=== PATIENT | female | born 1945 | race Caucasian/White ===

== ENCOUNTER 2016-08-26 03:25 | Emergency (ER) | payer MEDICARE, BC ==
--- NOTE | 2016-08-26 04:18 | EDM.PDOC ---
[id number] CHEST PAIN AND LEFT ARM PAIN Time Seen by Provider: 08/26/16 04:00 Source of Information: Reports: Patient, Family History Limitations: Reports: No limitations - History of Present Illness INITIAL COMMENTS - FREE TEXT/NARRATIVE: 70-year-old female with no prior cardiac history has been bothered by left arm pain 3 times over the last couple of nights, it lasts about 10 minutes. She has no pain while she is up and active. Tonight she was up with the pain so she asked her to bring her to the emergency room. She had no other symptoms such as shortness of breath, chest pain, nausea vomiting, diaphoresis, and the pain did not seem to be worse with motion. It lasted almost 10 minutes and resolved. She has a history of an ischemic stroke with right-sided weakness and mild expressive aphasia. She had a stress test a few years ago which was negative. Duration: Minutes: (Pain lasts between 5 and 10 minutes) Location: Reports: upper extremity, left Associated Symptoms: Reports: denies other symptoms - Related Data Allergies Allergy/AdvReac Type Severity Reaction Status Date / Time No Known Allergies Allergy Verified 08/26/16 03:45 Home Meds: Home Meds Aspirin [Adult Low Dose Aspirin EC] 81 mg PO DAILY 08/26/16 [History] Baclofen [Baclofen] 10 mg PO ASDIRECTED 08/26/16 [History] Cyanocobalamin (Vitamin B-12) [Vitamin B-12] 1,000 mcg PO DAILY 08/26/16 [ History] Folic Acid [Folic Acid] 1 mg PO DAILY 08/26/16 [History] Losartan/Hydrochlorothiazide [Losartan-HCTZ 100-25 MG] 1 tab PO DAILY 08/26/16 [ History] Simvastatin [Zocor] 20 mg PO BEDTIME 08/26/16 [History] Warfarin Sodium [Warfarin Sodium] 2.5 mg PO ASDIRECTED 08/26/16 [History] Past Medical History Cardiovascular 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: High cholesterol, 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: Neurological 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: CVA Hematologic 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: Folic acid - Infectious Disease History Infectious Disease 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: Chicken pox - Past Surgical History Musculoskeletal Surgical 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: Knee replacement, Other (see below) Other Musculoskeletal Surgeries/Procedures:: Twic and same knee Social & Family History - Tobacco Use Smoking Status *Q: Former Smoker - Caffeine Use Caffeine Use: Reports: Coffee - Recreational Drug Use Recreational Drug Use: No ED ROS GENERAL - Review of Systems Review Of Systems: See Below Constitutional: Denies: fever, chills Respiratory: Denies: Shortness of Breath, Cough Cardiovascular: Denies: Chest pain GI/Abdominal: Denies: Abdominal pain, Nausea, Vomiting : Reports: no symptoms Musculoskeletal: Reports: arm pain Skin: Reports: no symptoms Neurological: Denies: Headache Psychiatric: Reports: No symptoms ED EXAM, GENERAL - Physical Exam Exam: See Below Exam Limited By: No limitations (Some expressive aphasia) General Appearance: alert, no apparent distress Eye Exam: bilateral eye: EOMI Head: atraumatic Respiratory/Chest: no respiratory distress, lungs clear Cardiovascular: regular rate, rhythm, extra beats (Occasional) Neurological: alert, oriented Psychiatric: normal affect, normal mood Skin Exam: Warm, Dry EKG INTERPRETATION Rhythm: NSR Course - Vital Signs Last Recorded V/S: Last Vital Signs Temp 97.6 F 08/26/16 03:40 Pulse 89 08/26/16 05:05 Resp 14 08/26/16 05:05 BP 142/70 H 08/26/16 05:05 Pulse Ox 96 08/26/16 05:05 - Orders/Labs/Meds Orders: Active Orders 24 hr Category Date Time Status EKG Documentation Completion [RC] ASDIRECTED Care 08/26/16 04:14 Active EKG 12 Lead [EK] Routine Ther 08/26/16 04:14 Ordered Labs: Laboratory Tests 08/26/16 08/26/16 Range/Units 04:14 04:14 WBC 7.2 (4.5-11.0) K/uL RBC 3.52 (3.30-5.50) M/uL Hgb 11.4 L (12.0-15.0) g/dL Hct 33.7 L (36.0-48.0) % MCV 96 (80-98) fL MCH 32 H (27-31) pg MCHC 34 (32-36) % Plt Count 241 (150-400) K/uL Neut % (Auto) 61 (36-66) % Lymph % (Auto) 21 L (24-44) % [place] % (Auto) 15 H (2-6) % Eos % (Auto) 3 (2-4) % Baso % (Auto) 0 (0-1) % Sodium 144 (140-148) mmol/L Potassium 3.5 L (3.6-5.2) mmol/L Chloride 105 (100-108) mmol/L Carbon Dioxide 28 (21-32) mmol/L Anion Gap 14.5 H (5.0-14.0) mmol/L BUN 30 H (7-18) mg/dL Creatinine 1.5 H (0.6-1.0) mg/dL Est Cr Clr Drug Dosing 24.71 mL/min Estimated GFR (MDRD) 34 L (>60) Glucose 109 H (74-106) mg/dL Calcium 9.4 (8.5-10.1) mg/dL Troponin I < 0.017 (0.000-0.056) ng/mL - Re-Assessments/Exams Free Text/Narrative Re-Assessment/Exam: 08/26/16 04:18 CBC BMP EKG and troponin were obtained. 08/26/16 05:04 EKG was normal, creatinine is 1.5 and we don't have any previous labs but otherwise they are reassuring, troponin 0. Patient will recheck with her primary provider if symptoms persist or worsen. I explained to her and her that is likely some type of musculoskeletal or nerve pain that is bothering her at night. Departure - Departure Time of Disposition: 05:33 Disposition: Home, Self-Care 01 Condition: good Clinical Impression: Pain in left arm Instructions: Muscle Pain, Adult Referrals: Aidan Ruiz MD [Primary Care Provider] - Forms: ED Department Discharge Care Plan Goals: Continue your regular medications and try Tylenol for arm pain if it recurs. Recheck if worsening or concerns, or return to ER if you develop chest pain or shortness of breath with the arm pain. - My Orders Last 24 Hours: My Active Orders 08/26/16 04:14 EKG Documentation Completion [RC] ASDIRECTED EKG 12 Lead [EK] Routine - Assessment/Plan Last 24 Hours: My Active Orders 08/26/16 04:14 EKG Documentation Completion [RC] ASDIRECTED EKG 12 Lead [EK] Routine
[2016-08-26 05:32] VITALS: BP 142/70
== END 2016-08-26 05:35 | disposition home or self-care (01) ==
LOC: JP.ED 03:25
DX: M79.602 Pain in left arm (principal); I10 Essential (primary) hypertension; E78.00 Pure hypercholesterolemia, unspecified; Z96.659 Presence of unspecified artificial knee joint; Z87.891 Personal history of nicotine dependence; Z79.82 Long term (current) use of aspirin; Z79.01 Long term (current) use of anticoagulants; Z79.899 Other long term (current) drug therapy
CPT/HCPCS: 36415; 80048; 84484; 85025; 93005; 93010; 99283; 99284-25

== ENCOUNTER 2016-12-19 02:31 | Emergency (ER) | payer MEDICARE, BC ==
--- NOTE | 2016-12-19 03:29 | EDM.PDOC ---
ED HPI GENERAL MEDICAL PROBLEM - General Chief Complaint: Neurological Problem Stated Complaint: DIZZY Time Seen by Provider: 12/19/16 02:40 Source of Information: Reports: Patient, Family History Limitations: Reports: Language Barrier (Patient is fairly expressively aphasic due to a stroke) - History of Present Illness INITIAL COMMENTS - FREE TEXT/NARRATIVE: 71-year-old female woke up tonight and felt dizzy, not vertigo but like she was going to fall or faint. She had no headache, diaphoresis, shortness of breath, palpitations, nausea or vomiting, and she actually looks real good. She had a scrape on her anterior lower leg earlier this evening that bled easily and her is concerned about her pro time. He also thought her blood pressure was very labile at home. Onset: Unknown/Unsure Severity: Mild Associated Symptoms: Denies: Chest Pain, Fever/Chills, Headaches, Loss of Appetite, Nausea/Vomiting, Weakness - Related Data Allergies Allergy/AdvReac Type Severity Reaction Status Date / Time No Known Allergies Allergy Verified 08/26/16 03:45 Home Meds: Home Meds Aspirin [Adult Low Dose Aspirin EC] 81 mg PO DAILY 08/26/16 [History] Baclofen [Baclofen] 10 mg PO ASDIRECTED 08/26/16 [History] Cyanocobalamin (Vitamin B-12) [Vitamin B-12] 1,000 mcg PO DAILY 08/26/16 [ History] Folic Acid [Folic Acid] 1 mg PO DAILY 08/26/16 [History] Losartan/Hydrochlorothiazide [Losartan-HCTZ 100-25 MG] 1 tab PO DAILY 08/26/16 [ History] Simvastatin [Zocor] 20 mg PO BEDTIME 08/26/16 [History] Warfarin Sodium [Warfarin Sodium] 2.5 mg PO ASDIRECTED 08/26/16 [History] Past Medical History Cardiovascular 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: High Cholesterol, 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: Neurological 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: CVA Hematologic 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: Folic Acid - Infectious Disease History Infectious Disease 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: Chicken Pox - Past Surgical History Musculoskeletal Surgical 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: Knee Replacement, Other (See Below) Social & Family History - Tobacco Use Smoking Status *Q: Former Smoker - Caffeine Use Caffeine Use: Reports: Coffee - Recreational Drug Use Recreational Drug Use: No ED ROS GENERAL - Review of Systems Review Of Systems: See Below Constitutional: Denies: Fever, Chills, Malaise HEENT: Reports: No Symptoms Respiratory: Denies: Shortness of Breath, Cough Cardiovascular: Reports: Lightheadedness. Denies: Chest Pain, Palpitations GI/Abdominal: Denies: Abdominal Pain, Nausea, Vomiting : Reports: No Symptoms Skin: Reports: Other (Recent abrasion on the right lower leg) Neurological: Reports: Dizziness. Denies: Headache, Syncope Psychiatric: Reports: No Symptoms ED EXAM, GENERAL - Physical Exam Exam: See Below Exam Limited By: No Limitations General Appearance: Alert, No Apparent Distress Eye Exam: Bilateral Eye: EOMI, Other (No nystagmus) Head: Atraumatic Neck: No: Carotid Bruit Respiratory/Chest: No Respiratory Distress, Lungs Clear Cardiovascular: Regular Rate, Rhythm. No: Extra Beats GI/Abdominal: Soft, Non-Tender Neurological: Alert, Oriented Psychiatric: Normal Affect, Normal Mood Skin Exam: Warm, Dry Course - Vital Signs Last Recorded V/S: Last Vital Signs Temp 97.3 F 12/19/16 03:56 Pulse 75 12/19/16 03:56 Resp 15 12/19/16 03:56 BP 121/67 12/19/16 03:56 Pulse Ox 97 12/19/16 03:56 - Orders/Labs/Meds Labs: Laboratory Tests 12/19/16 12/19/16 12/19/16 Range/Units 03:09 03:09 03:09 WBC 6.2 (4.5-11.0) K/uL RBC 3.28 L (3.30-5.50) M/uL Hgb 10.4 L (12.0-15.0) g/dL Hct 32.0 L (36.0-48.0) % MCV 98 (80-98) fL MCH 32 H (27-31) pg MCHC 33 (32-36) % Plt Count 252 (150-400) K/uL Neut % (Auto) 52 (36-66) % Lymph % (Auto) 25 (24-44) % [place] % (Auto) 17 H (2-6) % Eos % (Auto) 5 H (2-4) % Baso % (Auto) 1 (0-1) % PT 31.7 H (9.5-12.0) sec INR 2.84 H (0.80-1.20) Sodium 141 (140-148) mmol/L Potassium 3.3 L (3.6-5.2) mmol/L Chloride 104 (100-108) mmol/L Carbon Dioxide 28 (21-32) mmol/L Anion Gap 12.3 (5.0-14.0) mmol/L BUN 29 H (7-18) mg/dL Creatinine 1.6 H (0.6-1.0) mg/dL Est Cr Clr Drug Dosing 22.83 mL/min Estimated GFR (MDRD) 32 L (>60) Glucose 103 (74-106) mg/dL Calcium 9.5 (8.5-10.1) mg/dL - Re-Assessments/Exams Free Text/Narrative Re-Assessment/Exam: 12/19/16 03:29 Orthostatic blood pressures were obtained and were normal. CBC BMP and pro time were obtained. Patient was observed for over an hour and was very stable and appeared asymptomatic. 12/19/16 03:37 Renal function is slow but not significantly different than previous levels. I encouraged the patient to stay hydrated tomorrow and recheck if symptoms persist for another 24-48 hours. Departure - Departure Time of Disposition: 03:45 Disposition: Home, Self-Care 01 Condition: Good Clinical Impression: Dizziness, History of ischemic cerebrovascular accident with residual deficit - Discharge Information Instructions: Dizziness Referrals: Aidan Ruiz MD [Primary Care Provider] - Forms: ED Department Discharge Care Plan Goals: Continue your current medications, focus on getting plenty of water over the next 1-2 days and return if not improving satisfactorily. Return anytime sooner if worsening or concerns.
[2016-12-19 03:57] VITALS: BP 121/67
== END 2016-12-19 03:58 | disposition home or self-care (01) ==
LOC: JP.ED 02:31
DX: R42 Dizziness and giddiness (principal); I10 Essential (primary) hypertension; E78.00 Pure hypercholesterolemia, unspecified; I69.30 Unspecified sequelae of cerebral infarction; Z96.659 Presence of unspecified artificial knee joint; Z87.891 Personal history of nicotine dependence; Z79.82 Long term (current) use of aspirin; Z79.01 Long term (current) use of anticoagulants; Z79.899 Other long term (current) drug therapy
CPT/HCPCS: 36415; 80048; 85025; 85610; 99284

== ENCOUNTER 2018-10-13 13:08 | Emergency (ER) | payer MEDICARE, BC ==
[2018-10-13 13:46] VITALS: BP 158/82
--- NOTE | 2018-10-13 14:04 | EDM.PDOC ---
ED HPI GENERAL MEDICAL PROBLEM - General Chief Complaint: Respiratory Problem Stated Complaint: BAD COUGH Time Seen by Provider: 10/13/18 13:55 Source of Information: Reports: Patient, Family History Limitations: Reports: No Limitations - History of Present Illness INITIAL COMMENTS - FREE TEXT/NARRATIVE: 72-year-old female with a cough for the last 2-3 days, worsening and now running a fever. No significant pleuritic chest pain, denies nausea or vomiting. History of an ischemic cerebrovascular accident on the left causing right hemiparesis. Onset: Gradual Duration: Day(s): (3 days) Worsens with: Reports: None Associated Symptoms: Reports: Cough, Fever/Chills, Shortness of Breath. Denies : Chest Pain, Headaches - Related Data Allergies Allergy/AdvReac Type Severity Reaction Status Date / Time tomato Allergy Hives Verified 10/13/18 13:47 Home Meds: Home Meds Aspirin [Adult Low Dose Aspirin EC] 81 mg PO DAILY 08/26/16 [History] Baclofen 10 mg PO ASDIRECTED 08/26/16 [History] Cyanocobalamin (Vitamin B-12) [Vitamin B-12] 1,000 mcg PO DAILY 08/26/16 [ History] Folic Acid 1 mg PO DAILY 08/26/16 [History] Losartan/Hydrochlorothiazide [Losartan-HCTZ 100-25 MG] 1 tab PO DAILY 08/26/16 [ History] Simvastatin [Zocor] 20 mg PO BEDTIME 08/26/16 [History] Warfarin Sodium 2.5 mg PO DAILY 08/26/16 [History] Past Medical History HEENT 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: Impaired Vision Cardiovascular 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: High 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, 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 Denies: Sputum Cardiovascular: Denies: Chest Pain GI/Abdominal: Denies: Nausea, Vomiting Neurological: Reports: Other (Right sided neurologic deficits from a previous ischemic CVA) Psychiatric: Reports: No Symptoms ED EXAM, GENERAL - Physical Exam Exam: See Below Exam Limited By: No Limitations General Appearance: Alert, No Apparent Distress Throat/Mouth: Normal Inspection Head: Atraumatic Respiratory/Chest: No Respiratory Distress, Lungs Clear Cardiovascular: Tachycardia Neurological: Alert, Oriented Psychiatric: Normal Affect, Normal Mood Skin Exam: Warm Course - Vital Signs Last Recorded V/S: Last Vital Signs Temp 101.4 F H 10/13/18 13:45 Pulse 137 H 10/13/18 13:45 Resp 22 H 10/13/18 13:45 BP 158/82 H 10/13/18 13:45 Pulse Ox 90 L 10/13/18 13:45 - Orders/Labs/Meds Orders: Active Orders 24 hr Category Date Time Status Chest 2V [CR] Routine Exams 10/13/18 14:01 Taken - Re-Assessments/Exams Free Text/Narrative Re-Assessment/Exam: 10/13/18 14:03 A two-view chest x-ray was obtained. 10/13/18 14:41 Two-view chest x-ray does show a likely right middle lobe pneumonia, there are no previous films to compare. Patient would like to try to be treated at home, so she will be placed on Zithromax and Levaquin. She will return if she is worsening or becomes more short of breath. Departure - Departure Time of Disposition: 15:00 Disposition: Home, Self-Care 01 Condition: Good Clinical Impression: Right middle lobe pneumonia Qualifiers: Pneumonia type: due to unspecified organism Qualified Code(s): J18.1 - Lobar pneumonia, unspecified organism - Discharge Information Instructions: Community-Acquired Pneumonia, Adult, [id number] Referrals: Aidan Ruiz MD [Primary Care Provider] - Forms: ED Department Discharge Care Plan Goals: Takes Zithromax and Levaquin as prescribed. Recheck INR as scheduled next week and return anytime if worsening despite treatment. Increase diet and activity as tolerated. - My Orders Last 24 Hours: My Active Orders 10/13/18 14:01 Chest 2V [CR] Routine - Assessment/Plan Last 24 Hours: My Active Orders 10/13/18 14:01 Chest 2V [CR] Routine
--- NOTE | 2018-10-13 16:04 | CRLCR ---
Indication: Dyspnea Technique: Chest 2 views Comparison: None Findings/Impression: Cardiovascular and mediastinum: Upper limits of normal cardiac size. Lungs and pleural spaces: A right mid lung opacity suggestive of pneumonia. Underlying mass is not excluded. A 2.5 x 1.3 cm ovoid medial right basilar opacity could be related to central vasculature, however followup is indicated to exclude a lesion. Correlate clinically and followup to document resolution. If these do not resolve, correlate with CT. No pleural effusions. A prominent ovoid paraspinal density could represent a large hiatal hernia. Bones and soft tissues: Degenerative changes in the right glenohumeral joint with an osseous deformity. A sclerotic focus in the left humeral head, nonspecific. Dictated by Cruzito Jones MD @ 10/13/2018 4:00:35 PM Dictated by: Cruzito Jones MD @ 10/13/2018 16:03:28 (Electronically Signed)
== END 2018-10-13 15:00 | disposition home or self-care (01) ==
LOC: JP.ED 13:08
DX: J18.1 Lobar pneumonia, unspecified organism (principal); I10 Essential (primary) hypertension; E78.00 Pure hypercholesterolemia, unspecified; Z86.73 Personal history of transient ischemic attack (TIA), and cerebral infarction without residual deficits; Z79.899 Other long term (current) drug therapy; Z79.01 Long term (current) use of anticoagulants; Z79.82 Long term (current) use of aspirin; Z91.018 Allergy to other foods
CPT/HCPCS: 71046; 99283-25

== ENCOUNTER 2018-10-15 15:56 | Emergency (ER) | payer MEDICARE, BC ==
[2018-10-15 16:49] VITALS: BP 171/80
--- NOTE | 2018-10-15 16:59 | EDM.PDOC ---
ED HPI GENERAL MEDICAL PROBLEM - General Chief Complaint: General Stated Complaint: PNEUMONIA NOT IMPROVING Time Seen by Provider: 10/15/18 16:51 Source of Information: Reports: Patient, Family History Limitations: Reports: No Limitations - History of Present Illness INITIAL COMMENTS - FREE TEXT/NARRATIVE: Patient presents along with her who believes that her pneumonia treatment is not working. Patient was seen here 2 days ago and based on history , exam, chest imaging, was prescribed levofloxacin and azithromycin is presumed to be a right lobar pneumonia. At that time she had a fever and felt poorly. Since then she has not had a fever at home and seems more like her usual self however her said today while attempting to assist her with transfer from bed to a chair, she felt weak and unable to assist with the transfer. She has had a previous stroke with left sided arm and leg paresis. They're concerned that the pneumonia is getting worse as a cause of her weakness episode today. Onset: Gradual Location: Reports: Generalized Associated Symptoms: Reports: No Other Symptoms - Related Data Allergies Allergy/AdvReac Type Severity Reaction Status Date / Time tomato Allergy Hives Verified 10/15/18 17:06 Home Meds: Home Meds Aspirin [Adult Low Dose Aspirin EC] 81 mg PO DAILY 08/26/16 [History] Baclofen 10 mg PO ASDIRECTED 08/26/16 [History] Cyanocobalamin (Vitamin B-12) [Vitamin B-12] 1,000 mcg PO DAILY 08/26/16 [ History] Folic Acid 1 mg PO DAILY 08/26/16 [History] Losartan/Hydrochlorothiazide [Losartan-HCTZ 100-25 MG] 1 tab PO DAILY 08/26/16 [ History] Simvastatin [Zocor] 20 mg PO BEDTIME 08/26/16 [History] Warfarin Sodium 2.5 mg PO DAILY 08/26/16 [History] Past Medical History HEENT 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: Impaired Vision Cardiovascular 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: High Cholesterol, Hypertension 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 Denies: Fever, Chills Respiratory: Reports: No Symptoms. Denies: Shortness of Breath, Cough Cardiovascular: Denies: Lightheadedness ED EXAM, GENERAL - Physical Exam Exam: See Below Exam Limited By: No Limitations General Appearance: Alert, No Apparent Distress Respiratory/Chest: No Respiratory Distress, Lungs Clear, Normal Breath Sounds, No Accessory Muscle Use Cardiovascular: Tachycardia Course - Vital Signs Last Recorded V/S: Last Vital Signs Temp 37.2 C 10/15/18 17:07 Pulse 105 H 10/15/18 17:07 Resp 16 10/15/18 17:07 BP 171/80 H 10/15/18 17:07 Pulse Ox 93 L 10/15/18 17:07 - Re-Assessments/Exams Free Text/Narrative Re-Assessment/Exam: 10/15/18 20:09 I reviewed notes and imaging studies from her previous visit. No lab work was done at the time however her x-ray does show right middle lobe infiltrate of some type. Only a single view chest was done and there was discussion of possibly obtaining a CT scan at some point if this infiltrate does not resolve. I discussed with patient and her , mostly with the , that she looks and sounds very good today. The fact that she is on 2 antibiotics for community pneumonia means things should be very adequately covered. He apparently had a grandson who is a college student developed pneumonia and sepsis and ended up again in intensive care unit in [id number]. I told him that I did not anticipate that happening with his based on how she looked today. They wonder about stopping or decreasing the baclofen that she takes for muscle spasms and said they certainly could and see if that improves her stamina. I discussed that anyone, even young people, can be quite deconditioned following any type of illness. In her case, with residual symptoms from a stroke, her reserve would be small. They seem to understand and appreciate the discussion. Departure - Departure Time of Disposition: 17:23 Disposition: Home, Self-Care 01 Condition: Good Clinical Impression: Pneumonia - Discharge Information *PRESCRIPTION DRUG MONITORING PROGRAM REVIEWED*: Not Applicable *COPY OF PRESCRIPTION DRUG MONITORING REPORT IN PATIENT ADAM: Not Applicable Instructions: Community-Acquired Pneumonia, Adult, [id number] Referrals: PCP,None [Primary Care Provider] - Forms: ED Department Discharge Additional Instructions: Continue current medications and cares at home. Return to ER if feeling worse in anyway.
== END 2018-10-15 17:32 | disposition home or self-care (01) ==
LOC: JP.ED 15:56
DX: J18.9 Pneumonia, unspecified organism (principal); E78.00 Pure hypercholesterolemia, unspecified; I10 Essential (primary) hypertension; Z79.899 Other long term (current) drug therapy; Z79.01 Long term (current) use of anticoagulants; Z91.018 Allergy to other foods; Z79.82 Long term (current) use of aspirin
CPT/HCPCS: 99284

== ENCOUNTER 2018-10-21 09:55 | Emergency (ER) | payer MEDICARE, BC ==
[2018-10-21 10:39] VITALS: BP 116/51
--- NOTE | 2018-10-21 11:41 | EDM.PDOC ---
ED HPI GENERAL MEDICAL PROBLEM - General Chief Complaint: General Stated Complaint: RECHECK Time Seen by Provider: 10/21/18 10:40 Source of Information: Reports: Patient, Family History Limitations: Reports: No Limitations - History of Present Illness INITIAL COMMENTS - FREE TEXT/NARRATIVE: 72-year-old female seen 8 days ago, is found with a right lung infiltrate and was treated with Levaquin and Zithromax. She was rechecked 2 days later because of weakness but appeared to be doing well and was encouraged to continue her treatment. She has 1 day of Levaquin left, but she continues to be very weak and her is concerned that there is something else wrong. He called her primary provider and it was recommended she come to the emergency room to get labs and CT scans. She has no cough, no shortness of breath, no fever but does have persistent weakness, having trouble getting out of her chair and also having some increased swelling in her left leg. Onset: Gradual Duration: Day(s): (8-10 days) Associated Symptoms: Reports: Cough (Cough has improved), Weakness. Denies: Chest Pain, Fever/Chills, Shortness of Breath - Related Data Allergies Allergy/AdvReac Type Severity Reaction Status Date / Time lisinopril Allergy Other Verified 10/21/18 11:33 tomato Allergy Hives Verified 10/21/18 10:22 Home Meds: Home Meds Aspirin [Adult Low Dose Aspirin EC] 81 mg PO DAILY 08/26/16 [History] Baclofen 10 mg PO ASDIRECTED 08/26/16 [History] Cyanocobalamin (Vitamin B-12) [Vitamin B-12] 1,000 mcg PO DAILY 08/26/16 [ History] Folic Acid 1 mg PO DAILY 08/26/16 [History] Losartan/Hydrochlorothiazide [Losartan-HCTZ 100-25 MG] 1 tab PO BEDTIME [History] Simvastatin [Zocor] 20 mg PO BEDTIME 08/26/16 [History] Warfarin Sodium 2.5 mg PO DAILY 08/26/16 [History] Past Medical History HEENT 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: Impaired Vision Cardiovascular 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: High Cholesterol, Hypertension [employer] 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: Musculoskeletal 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: None Neurological 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: CVA Endocrine/Metabolic 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: Obesity/BMI 30+ Hematologic 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: Folic Acid - Infectious Disease History Infectious Disease 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: Chicken Pox - Past Surgical History Head Surgeries/Procedures: Reports: None Endocrine Surgical 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: None Musculoskeletal Surgical 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: Knee Replacement, Other (See Below) Social & Family History - Tobacco Use Smoking Status *Q: Former Smoker Used Tobacco, but Quit: Yes Month/Year Tobacco Last Used: 06/25/1998 - Caffeine Use Caffeine Use: Reports: Coffee - Recreational Drug Use Recreational Drug Use: No ED ROS GENERAL - Review of Systems Review Of Systems: See Below Constitutional: Reports: Malaise. Denies: Fever, Chills HEENT: Reports: No Symptoms Respiratory: Reports: Cough. Denies: Shortness of Breath, Sputum Cardiovascular: Denies: Chest Pain GI/Abdominal: Denies: Abdominal Pain, Nausea, Vomiting Skin: Reports: No Symptoms Neurological: Reports: Other (Chronic stable expressive aphasia and right-sided weakness from an ischemic stroke 20 years ago) Psychiatric: Reports: No Symptoms ED EXAM, GENERAL - Physical Exam Exam: See Below Exam Limited By: No Limitations General Appearance: Alert, No Apparent Distress Eye Exam: Bilateral Eye: EOMI Head: Atraumatic Respiratory/Chest: No Respiratory Distress, Lungs Clear Cardiovascular: Regular Rate, Rhythm GI/Abdominal: Non-Tender Extremities: Other (Patient is wearing a brace behind her right foot for chronic weakness, has 1+ pitting edema of the left lower extremity) Psychiatric: Normal Affect, Normal Mood Skin Exam: Warm, Dry Course - Vital Signs Last Recorded V/S: Last Vital Signs Temp 96.8 F 10/21/18 10:36 Pulse 94 10/21/18 10:36 Resp 13 10/21/18 10:36 BP 116/51 L 10/21/18 10:36 Pulse Ox 93 L 10/21/18 10:36 - Orders/Labs/Meds Labs: Laboratory Tests 10/21/18 10/21/18 Range/Units 10:50 10:50 WBC 6.7 (4.5-11.0) K/uL RBC 3.38 (3.30-5.50) M/uL Hgb 10.9 L (12.0-15.0) g/dL Hct 32.8 L (36.0-48.0) % MCV 97 (80-98) fL MCH 32 H (27-31) pg MCHC 33 (32-36) % Plt Count 232 (150-400) K/uL Neut % (Auto) 65 (36-66) % Lymph % (Auto) 13 L (24-44) % [place] % (Auto) 20 H (2-6) % Eos % (Auto) 2 (2-4) % Baso % (Auto) 0 (0-1) % Sodium 135 L (140-148) mmol/L Potassium 3.7 (3.6-5.2) mmol/L Chloride 98 L (100-108) mmol/L Carbon Dioxide 25 (21-32) mmol/L Anion Gap 15.7 H (5.0-14.0) mmol/L BUN 51 H D (7-18) mg/dL Creatinine 3.0 H D (0.6-1.0) mg/dL Est Cr Clr Drug Dosing 12.00 mL/min Estimated GFR (MDRD) 15 L (>60) Glucose 125 H (74-106) mg/dL Calcium 9.7 (8.5-10.1) mg/dL Total Bilirubin 0.7 (0.2-1.0) mg/dL AST 37 (15-37) U/L ALT 27 (12-78) U/L Alkaline Phosphatase 62 (46-116) U/L Total Protein 6.8 (6.4-8.2) g/dL Albumin 3.4 (3.4-5.0) g/dL Globulin 3.4 (2.3-3.5) g/dL Albumin/Globulin Ratio 1.0 L (1.2-2.2) - Re-Assessments/Exams Free Text/Narrative Re-Assessment/Exam: 10/21/18 11:53 CBC, CMP were obtained to check kidney function followed by CT of the head and chest possibly with IV contrast enhancement of the chest. Head CT showed no acute findings, chest CT was very impressive as her pneumonia had almost completely cleared and there was no underlying mass or concerning findings. CBC was reassuring with a normal white count however her kidney function is worsening over the past 2 years and her GFR is only 15. This was discussed with her primary provider, she is going to recheck with him next week. The last dose of Levaquin was not taken. Departure - Departure Time of Disposition: 13:33 Disposition: Home, Self-Care 01 Condition: Fair Clinical Impression: Generalized weakness Renal failure Qualifiers: Renal failure chronicity: unspecified chronicity Qualified Code(s): N19 - Unspecified kidney failure - Discharge Information Instructions: Weakness, [id number] Referrals: PCP,None [Primary Care Provider] - Forms: ED Department Discharge Care Plan Goals: Stop antibiotics and continue your regular medications. Activity as tolerated and call your primary provider next week for an update on your symptoms and to arrange blood test to recheck kidney function. Return sooner if worsening or you develop other concerns.
--- NOTE | 2018-10-21 12:34 | CRLCT ---
INDICATION: Weakness TECHNIQUE: CT head without contrast. COMPARISON: None available FINDINGS: There is mild age related cortical atrophy with mild proportionate ventriculomegaly. There is an old left MCA territory infarct with ex vacuo dilatation of the left lateral ventricle. There is no mass effect or midline shift. There is no loss of schaffer-white differentiation. There is no evidence of an acute intracranial hemorrhage. No acute calvarial fracture is seen. There is a 1.3 cm sclerotic lesion in the superior left parietal calvarium, nonspecific. The visualized paranasal sinuses and mastoid air cells are clear. The visualized orbits are within normal limits. IMPRESSION: No evidence of an acute intracranial hemorrhage, mass effect or loss of schaffer-white differentiation. A chronic left MCA territory infarct. A sclerotic lesion in the superior left parietal bone, nonspecific. If indicated, followup with bone scan. Dictated by Cruzito Jones MD @ 10/21/2018 12:32:46 PM Please note that all CT scans at this facility use dose modulation, iterative reconstruction, and/or weight-based dosing when appropriate to reduce radiation dose to as low as reasonably achievable. Dictated by: Cruzito Jones MD @ 10/21/2018 12:33:01 (Electronically Signed)
--- NOTE | 2018-10-21 12:44 | CRLCT ---
INDICATION: Weakness. Lung infiltrate TECHNIQUE: CT chest without contrast. COMPARISON: A chest x-ray dated 10/13/2018. FINDINGS: Cardiovascular structures: Upper limits of normal cardiac size. Normal aortic caliber. Atherosclerotic changes. Mediastinum and renetta: A borderline superior mediastinal lymph node on image 22, nonspecific. A large hiatal hernia. Lungs: Mild basilar subsegmental atelectasis. The right mid lung infiltrate seen on the prior chest x-ray has resolved. No consolidation. Pleura and pericardium: No pleural effusions. A small pericardial effusion. Chest wall and axilla: A 1.1 cm soft tissue nodule in the left breast on image 65. A small right thyroid low-density lesion on image 11 and an apparent ill-defined low-attenuation area more inferiorly versus artifact. Upper abdomen: Increased attenuation in the visualized portion of the gallbladder may represent sludge. Bones: An irregular sclerotic lesion in the left humeral head suggestive of a chondroid lesion. Degenerative changes in both shoulders, right greater than left. Loose intra-articular bodies in the left subcoracoid recess. IMPRESSION: No evidence of an acute pulmonary process. Interval resolution of the previously seen right mid lung infiltrate. A small pericardial effusion. A large hiatal hernia. A 1 cm left breast soft tissue nodule. Correlate with mammography and sonography. A chondroid lesion in the left humeral head which could represent an enchondroma, however radiographic surveillance is recommended to ensure stability. Right thyroid lesions. Followup with nonemergent sonography. Dictated by Cruzito Jones MD @ 10/21/2018 12:43:32 PM Please note that all CT scans at this facility use dose modulation, iterative reconstruction, and/or weight-based dosing when appropriate to reduce radiation dose to as low as reasonably achievable. Dictated by: Cruzito Jones MD @ 10/21/2018 12:43:46 (Electronically Signed)
== END 2018-10-21 13:33 | disposition home or self-care (01) ==
LOC: JP.ED 09:55
DX: N19 Unspecified kidney failure (principal); R53.1 Weakness; I10 Essential (primary) hypertension; Z86.73 Personal history of transient ischemic attack (TIA), and cerebral infarction without residual deficits; Z87.891 Personal history of nicotine dependence; Z79.82 Long term (current) use of aspirin; Z79.899 Other long term (current) drug therapy; Z88.8 Allergy status to other drugs, medicaments and biological substances; Z91.018 Allergy to other foods
CPT/HCPCS: 36415; 70450; 71250; 80053; 85025; 99285-25

== ENCOUNTER 2021-01-15 06:08 | Observation (INO) | payer MEDICARE, BC ==
[2021-01-15] MEDS ORDERED: HYDROmorphone 0.5 MG/0.5 ML Syringe IM ONE (06:51)
--- NOTE | 2021-01-15 06:52 | EDM.PDOC ---
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 Onset: Gradual, Other (pt fell on sat. ) Duration: Hour(s): Location: Reports: Upper Extremity, Right, Other (pt has had a previous stroke and is not able to use the arm. ) Associated Symptoms: Reports: No Other Symptoms Right Lower Arm Pain Score (Numeric/FACES): 10 - Related Data Allergies Allergy/AdvReac Type Severity Reaction Status Date / Time lisinopril Allergy Other Verified 01/15/21 06:24 tomato Allergy Hives Verified 01/15/21 06:24 Home Meds: Home Meds Aspirin [Adult Low Dose Aspirin EC] 81 mg PO DAILY 08/26/16 [History] Losartan/Hydrochlorothiazide [Losartan-HCTZ 100-25 MG] 1 tab PO BEDTIME 08/26/16 [History] Simvastatin [Zocor] 20 mg PO BEDTIME 08/26/16 [History] Warfarin Sodium 2.5 mg PO DAILY 08/26/16 [History] Multivitamin 1 each PO DAILY 01/15/21 [History] Past Medical History HEENT 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: Impaired Vision Cardiovascular 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: High Cholesterol, Hypertension [employer] 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: Musculoskeletal 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: None Neurological 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: CVA Endocrine/Metabolic 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: Obesity/BMI 30+ Hematologic 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: Folic Acid - Infectious Disease History Infectious Disease 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: Chicken Pox - Past Surgical History Head Surgeries/Procedures: Reports: None Endocrine Surgical 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: None Neurological Surgical 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: None Musculoskeletal Surgical 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: Knee Replacement, Other (See Below) Other Musculoskeletal Surgeries/Procedures:: Twic and same knee Social & Family History - Tobacco Use Tobacco Use Status *Q: Former Tobacco User Used Tobacco, but Quit: Yes Month/Year Tobacco Last Used: 19 years ago - Caffeine Use Caffeine Use: Reports: Coffee - Alcohol Use Days Per Week of Alcohol Use: 7 Number of Drinks Per Day: 3 Total Drinks Per Week: 21 - Recreational Drug Use Recreational Drug Use: No Review of Systems - Review of Systems Review Of Systems: See Below Constitutional: Reports: No Symptoms Eyes: Reports: No Symptoms Ears: Reports: No Symptoms Nose: Reports: No Symptoms Mouth/Throat: Reports: No Symptoms Respiratory: Reports: No Symptoms Cardiovascular: Reports: No Symptoms GI/Abdominal: Reports: No Symptoms Genitourinary: Reports: No Symptoms Musculoskeletal: Reports: Other (marked swelling of the rt arm) ED EXAM, GENERAL - Physical Exam Exam: See Below Free Text/Narrative:: 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 This arm is paralized from a previous stroke. The arm at this time is extremely swollen and discolored. her pain is at a 9. pT IS ON COUMADIN Exam Limited By: No Limitations General Appearance: Alert, Severe Distress Ears: Normal TMs Nose: Normal Inspection Throat/Mouth: Normal Inspection Head: Atraumatic Neck: Normal Inspection Respiratory/Chest: No Respiratory Distress Cardiovascular: Regular Rate, Rhythm GI/Abdominal: Soft, Non-Tender (Female) Exam: Deferred Rectal (Female) Exam: Deferred Back Exam: Normal Inspection Extremities: Other ( RT ARM IS PARALIZED AND SHE NOW IS MARKEDLY SWOLLEN. ) Neurological: Alert, Oriented, Normal Cognition Psychiatric: Anxious Departure - Departure Disposition: Admitted As Inpatient 65 Clinical Impression: Supratherapeutic INR, Blood loss anemia Traumatic hematoma of right upper arm Qualifiers: Encounter type: initial encounter Qualified Code(s): S40.021A - Contusion of right upper arm, initial encounter - Discharge Information Sepsis Event Note (ED) - Evaluation Sepsis Screening Result: No Definite Risk <Donis Lazar - Last Filed: 01/15/21 14:12> Course - Vital Signs Last Recorded V/S: Last Vital Signs Temp 97 F 01/15/21 10:00 Pulse 84 01/15/21 10:00 Resp 16 01/15/21 10:00 BP 151/64 H 01/15/21 10:00 Pulse Ox 94 L 01/15/21 10:00 - Orders/Labs/Meds Orders: Medication Orders Acetaminophen (Acetaminophen 325 Mg Tab) 650 mg PO Q4H PRN PRN Reason: Pain (Mild 1-3)/fever Atorvastatin Calcium (Atorvastatin 10 Mg Tab) 10 mg PO BEDTIME LY Hydrochlorothiazide (Hydrochlorothiazide 25 Mg Tab) 25 mg PO BEDTIME LY Sodium Chloride (Normal Saline) 1,000 mls @ 125 mls/hr IV ASDIRECTED LY Last Admin: 01/15/21 12:00 Dose: 125 mls/hr Documented by: HANNAH Losartan Potassium (Losartan 50 Mg Tab) 100 mg PO BEDTIME LY Ondansetron HCl (Ondansetron 4 Mg/2 Ml Sdv) 4 mg IV Q4H PRN PRN Reason: Nausea/Vomiting Last Admin: 01/15/21 12:30 Dose: 4 mg Documented by: HANNAH Oxycodone HCl (Oxycodone 5 Mg Tab) 5 mg PO Q4H PRN PRN Reason: severe pain Last Admin: 01/15/21 10:47 Dose: 5 mg Documented by: HANNAH Polyethylene Glycol (Polyethylene Glycol 3350 Powder 17 Gm Packet) 17 gm PO DAILY PRN PRN Reason: Constipation Sodium Chloride (Sodium Chloride 0.9% 10 Ml Syringe) 10 ml FLUSH ASDIRECTED PRN PRN Reason: Keep Vein Open Labs: Laboratory Tests 01/15/21 01/15/21 01/15/21 Range/Units 06:48 06:48 06:48 WBC 8.8 (4.5-11.0) K/uL RBC 2.31 L (3.30-5.50) M/uL Hgb 7.6 L D (12.0-15.0) g/dL Hct 22.5 L (36.0-48.0) % MCV 97 (80-98) fL MCH 33 H (27-31) pg MCHC 34 (32-36) % Plt Count 202 (150-400) K/uL Neut % (Auto) 74.0 H (36-66) % Lymph % (Auto) 11.6 L (24-44) % [place] % (Auto) 12.6 H (2-6) % Eos % (Auto) 1.6 L (2-4) % Baso % (Auto) 0.2 (0-1) % PT 66.2 H (9.5-12.0) sec INR 6.30 H* (0.80-1.20) Sodium 139 L (140-148) mmol/L Potassium 3.4 L (3.6-5.2) mmol/L Chloride 100 (100-108) mmol/L Carbon Dioxide 25 (21-32) mmol/L Anion Gap 17.4 H (5.0-14.0) mmol/L BUN 20 H D (7-18) mg/dL Creatinine 1.1 H D (0.6-1.0) mg/dL Est Cr Clr Drug Dosing 31.25 mL/min Estimated GFR (MDRD) 48 L (>60) Glucose 127 H (74-106) mg/dL Calcium 8.4 L (8.5-10.1) mg/dL Total Bilirubin 0.8 (0.2-1.0) mg/dL AST 44 H (15-37) U/L ALT 33 (12-78) U/L Alkaline Phosphatase 115 D (46-116) U/L Total Protein 6.4 (6.4-8.2) g/dL Albumin 3.2 L (3.4-5.0) g/dL Globulin 3.2 (2.3-3.5) g/dL Albumin/Globulin Ratio 1.0 L (1.2-2.2) Meds: Medications Generic Name Dose Route Start Last Admin Trade Name Freq PRN Reason Stop Dose Admin Acetaminophen 650 mg 01/15/21 09:37 Acetaminophen 325 Mg Tab PO Q4H PRN Pain (Mild 1-3)/fever Atorvastatin Calcium 10 mg 01/15/21 21:00 Atorvastatin 10 Mg Tab PO BEDTIME LY Hydrochlorothiazide 25 mg 01/15/21 21:00 Hydrochlorothiazide 25 Mg Tab PO BEDTIME LY Sodium Chloride 1,000 mls @ 125 mls/hr 01/15/21 09:37 01/15/21 12:00 Normal Saline IV 125 mls/hr ASDIRECTED LY Administration Losartan Potassium 100 mg 01/15/21 21:00 Losartan 50 Mg Tab PO BEDTIME LY Ondansetron HCl 4 mg 01/15/21 09:37 01/15/21 12:30 Ondansetron 4 Mg/2 Ml Sdv IV 4 mg Q4H PRN Administration Nausea/Vomiting Oxycodone HCl 5 mg 01/15/21 10:41 01/15/21 10:47 Oxycodone 5 Mg Tab PO 5 mg Q4H PRN Administration severe pain Polyethylene Glycol 17 gm 01/15/21 09:37 Polyethylene Glycol 3350 Powder 17 Gm Packet PO DAILY PRN Constipation Sodium Chloride 10 ml 01/15/21 09:37 Sodium Chloride 0.9% 10 Ml Syringe FLUSH ASDIRECTED PRN Keep Vein Open Discontinued Medications Generic Name Dose Route Start Last Admin Trade Name Mian PRN Reason Stop Dose Admin Hydromorphone HCl 0.5 mg 01/15/21 06:51 01/15/21 07:14 Hydromorphone 0.5 Mg/0.5 Ml Syringe IM 01/15/21 06:52 0.5 mg ONETIME ONE Administration Phytonadione 5 mg/ Sodium 50.5 mls @ 100 mls/hr 01/15/21 11:45 01/15/21 12:10 Chloride IV 01/15/21 12:15 100 mls/hr NOW ONE Administration - Re-Assessments/Exams Free Text/Narrative Re-Assessment/Exam: 01/15/21 08:20 Patient care turned over from Dr. Sherman pending arm x-ray. There does not appear to be a humeral fracture. However her hemoglobin is 7.6 compared to over 11 last November. Her INR is over 7. I think she is at high risk of further blood loss anemia and needs admission for stabilization of her hyper anticoagulation status and follow some serial hemoglobins. She also will likely need pain control. I talked to Dr. Street and he kindly agreed to see the patient to consider admission. Departure - Departure Time of Disposition: 10:06 Sepsis Event Note (ED) - Focused Exam Vital Signs: Vital Signs Temp Pulse Resp BP Pulse Ox 01/15/21 07:55 85 16 132/52 L 95 01/15/21 06:20 98.1 F 96 16 170/72 H 96
--- NOTE | 2021-01-15 08:46 | PCM.HP.2 ---
H&P History of Present Illness - General Date of Service: 01/15/21 Admit Problem/Dx: Admission Diagnosis/Problem Admission Diagnosis/Problem Bleeding Source of Information: Patient, Family, Provider, RN Notes Reviewed History Limitations: Reports: No Limitations - History of Present Illness Initial Comments - Free Text/Narative: Ms. Menchaca is a 75-year-old woman who was admitted through the emergency department for management of pain and hematoma of her right upper extremity following a fall 4 days ago. She is status post CVA with residual right-sided weakness approximately 20 years ago. She fell 4 days ago and since then has developed progressive ecchymosis and swelling of her right upper extremity. She continues to experience significant pain in the upper portion of her upper arm. Because of progressive symptoms she presented to the emergency department [facility] this morning. X-ray shows no evidence of fracture. INR was significantly elevated and she is on long-term oral anticoagulation with warfarin as well as aspirin. Right Lower Arm Pain Score (Numeric/FACES): 5 Right Upper Arm Pain Score (Numeric/FACES): 5 - Related Data Allergies/Adverse Reactions: Allergies Allergy/AdvReac Type Severity Reaction Status Date / Time lisinopril Allergy Other Verified 01/15/21 06:24 tomato Allergy Hives Verified 01/15/21 06:24 Home Medications: Home Meds Aspirin [Adult Low Dose Aspirin EC] 81 mg PO DAILY 08/26/16 [History] Losartan/Hydrochlorothiazide [Losartan-HCTZ 100-25 MG] 1 tab PO BEDTIME 08/26/16 [History] Simvastatin [Zocor] 20 mg PO BEDTIME 08/26/16 [History] Warfarin Sodium 2.5 mg PO DAILY 08/26/16 [History] Multivitamin 1 each PO DAILY 01/15/21 [History] Past Medical History HEENT 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: Impaired Vision Cardiovascular 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: High Cholesterol, Hypertension 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: Musculoskeletal 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: None Neurological 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: CVA Endocrine/Metabolic 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: Obesity/BMI 30+ Hematologic 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: Folic Acid - Infectious Disease History Infectious Disease 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: Chicken Pox - Past Surgical History Head Surgeries/Procedures: Reports: None Endocrine Surgical 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: None Neurological Surgical 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: None Musculoskeletal Surgical 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: Knee Replacement, Other (See Below) Other Musculoskeletal Surgeries/Procedures:: Twic and same knee Social & Family History - Tobacco Use Tobacco Use Status *Q: Former Tobacco User Used Tobacco, but Quit: Yes Month/Year Tobacco Last Used: 19 years ago - Caffeine Use Caffeine Use: Reports: Coffee - Alcohol Use Days Per Week of Alcohol Use: 7 Number of Drinks Per Day: 3 Total Drinks Per Week: 21 - Recreational Drug Use Recreational Drug Use: No H&P Review of Systems - Review of Systems: Review Of Systems: See Below General: Reports: No Symptoms HEENT: Reports: No Symptoms Pulmonary: Reports: No Symptoms Cardiovascular: Reports: No Symptoms Gastrointestinal: Reports: No Symptoms Genitourinary: Reports: No Symptoms Musculoskeletal: Reports: No Symptoms Skin: Reports: Bruising, Other (Ecchymosis and swelling of the right upper extremity) Psychiatric: Reports: No Symptoms Neurological: Reports: No Symptoms Hematologic/Lymphatic: Reports: No Symptoms Immunologic: Reports: No Symptoms Exam - Exam Exam: See Below - Vital Signs Vital Signs: Last Vital Signs Temp 98.1 F 01/15/21 06:20 Pulse 85 01/15/21 07:55 Resp 16 01/15/21 07:55 BP 132/52 L 01/15/21 07:55 Pulse Ox 95 01/15/21 07:55 Weight: 150 lb - Exam General: Alert, Oriented, Cooperative, Moderate Distress HEENT: Conjunctiva Clear, Hearing Intact, Mucosa Moist & [place], Normal Nasal Septum, Posterior Pharynx Clear, Pupils Equal Neck: Supple, Trachea Midline, +2 Carotid Pulse wo Bruit Lungs: Clear to Auscultation, Normal Respiratory Effort Cardiovascular: Regular Rate, Regular Rhythm, Normal S1, Normal S2. No: Systolic Murmur, Diastolic Murmur GI/Abdominal Exam: Soft, Non-Tender, No Organomegaly, No Distention Back Exam: Normal Inspection, Full Range of Motion Extremities: Other (Marked ecchymosis and swelling of the right upper extremity, no evidence of vascular compromise) Skin: Warm, Dry, Intact, Ecchymosis Neurological: Cranial Nerves Intact, Normal Speech, Normal Tone, Sensation Intact. No: Strength Equal Bilateral (Weakness right upper and lower extremity, chronic), Focal Deficit Neuro Extensive - Mental Status: Alert, Oriented x3, Normal Mood/Affect, Normal Cognition, Memory Intact - Patient Data Lab Results Last 24 hrs: Laboratory Results - last 24 hr 01/15/21 01/15/21 01/15/21 Range/Units 06:48 06:48 06:48 WBC 8.8 (4.5-11.0) K/uL RBC 2.31 L (3.30-5.50) M/uL Hgb 7.6 L D (12.0-15.0) g/dL Hct 22.5 L (36.0-48.0) % MCV 97 (80-98) fL MCH 33 H (27-31) pg MCHC 34 (32-36) % Plt Count 202 (150-400) K/uL Neut % (Auto) 74.0 H (36-66) % Lymph % (Auto) 11.6 L (24-44) % [place] % (Auto) 12.6 H (2-6) % Eos % (Auto) 1.6 L (2-4) % Baso % (Auto) 0.2 (0-1) % PT 66.2 H (9.5-12.0) sec INR 6.30 H* (0.80-1.20) Sodium 139 L (140-148) mmol/L Potassium 3.4 L (3.6-5.2) mmol/L Chloride 100 (100-108) mmol/L Carbon Dioxide 25 (21-32) mmol/L Anion Gap 17.4 H (5.0-14.0) mmol/L BUN 20 H D (7-18) mg/dL Creatinine 1.1 H D (0.6-1.0) mg/dL Est Cr Clr Drug Dosing 31.25 mL/min Estimated GFR (MDRD) 48 L (>60) Glucose 127 H (74-106) mg/dL Calcium 8.4 L (8.5-10.1) mg/dL Total Bilirubin 0.8 (0.2-1.0) mg/dL AST 44 H (15-37) U/L ALT 33 (12-78) U/L Alkaline Phosphatase 115 D (46-116) U/L Total Protein 6.4 (6.4-8.2) g/dL Albumin 3.2 L (3.4-5.0) g/dL Globulin 3.2 (2.3-3.5) g/dL Albumin/Globulin Ratio 1.0 L (1.2-2.2) Result Diagrams: 01/15/21 12:55 01/15/21 06:48 Sepsis Event Note - Evaluation Sepsis Screening Result: No Definite Risk - Focused Exam Vital Signs: Vital Signs Temp Pulse Resp BP Pulse Ox 01/15/21 07:55 85 16 132/52 L 95 01/15/21 06:20 98.1 F 96 16 170/72 H 96 *Q Meaningful Use (ADM) - VTE *Q VTE Pharmacological Contraindications *Q: High INR Value - VTE Risk Assess *Q Each Risk Factor Represents 1 Point: Obesity ( BMI > 25 kg/m2) Total Score 1 Point Risk Factors: 1 Each Risk Factor Represents 2 Points: None Total Score 2 Point Risk Factors: 0 Each Risk Factor Represents 3 Points: Age 75 Years or Greater Total Score 3 Point Risk Factors: 3 Each Risk Factor Represents 5 Points: None Total Score 5 Point Risk Factors: 0 Venous Thromboembolism Risk Factor Score *Q: 4 Problem List Initiated/Reviewed/Updated: Yes Orders Last 24hrs: Active Orders 24 hr Category Date Time Status Patient Status Manage Transfer [TRANSFER] Routine ADT 01/15/21 08:38 Ordered Humerus Rt [CR] Stat Exams 01/15/21 06:55 Taken UA W/MICROSCOPIC [URIN] Urgent Lab 01/15/21 06:38 Ordered Resuscitation Status Routine Resus Stat 01/15/21 08:41 Ordered Assessment/Plan Comment:: ASSESSMENT AND PLAN HEMATOMA RIGHT UPPER EXTREMITY-secondary to a fall 4 days ago, complicated by anticoagulation with warfarin and aspirin. She has had increased pain and swelling in the arm over the past 4 days. INR obtained in the emergency room is supratherapeutic, likely contributing to ongoing bleeding. X-rays have shown no evidence of fracture. 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 -Keep the arm elevated -Reverse anticoagulation with vitamin K 5 mg IV -Hold warfarin and aspirin -Recheck INR in a.m. CHRONIC ANTICOAGULATION WITH WARFARIN-she reports that she has been on warfarin since her CVA approximately 20 years ago -Management as above HYPERTENSION -Continue outpatient medications HISTORY OF PREVIOUS CVA-residual right-sided weakness MAINTENANCE ISSUES -DVT prophylaxis; SCUDs, hold on anticoagulation secondary to bleeding -GI prophylaxis; not indicated -Méndez catheter; not indicated -Nutrition; regular diet -Nicotinic dependence; not required CODE STATUS-FULL CODE ADMISSION STATUS-this patient will be admitted to observation status, expect no more than a one night hospital stay for evaluation and management of problems as outlined above. DISPOSITION-anticipate discharge to home after the hospital stay. PRIMARY CARE PROVIDER-Dr. Ruiz - Mortality Measure Prognosis:: Good
--- NOTE | 2021-01-15 09:08 | CR ---
Humerus Rt CLINICAL HISTORY: Pain, fall FINDINGS: There is deformity of the humeral head. There is moderate periarticular ossification. Configuration is somewhat similar to a chest x-ray in 2019. No definite acute fractures identified. There is moderate soft tissue edema and/or ecchymosis IMPRESSION: Chronic deformity the humeral head without definite acute fracture. If clinical symptomatology persists or worsens a repeat exam is recommended.
[2021-01-15] MEDS ORDERED: Ondansetron 4 MG/2 ML SDV IV PRN (09:37)
[2021-01-15] MEDS ORDERED: Acetaminophen 325 MG Tab PO PRN (09:37)
[2021-01-15] MEDS ORDERED: Polyethylene Glycol 3350 Powder 17 GM Packet PO PRN (09:37)
[2021-01-15] MEDS ORDERED: Sodium Chloride 0.9% 10 ML Syringe FLUSH PRN (09:37)
[2021-01-15] MEDS: oxyCODONE 5 MG Tab PO PRN ×3 (10:47→23:27)
[2021-01-15] MEDS ORDERED: Phytonadione 5 MG in Sodium Chloride 0.9% 50 ML IV ONE (11:45)
[2021-01-15] MEDS: Sodium Chloride 0.9% 1,000 ML IV SCH ×2 (12:00→20:55)
--- NOTE | 2021-01-15 13:13 | CT ---
Humerus wo Cont Rt CLINICAL HISTORY: Fall, swelling and ecchymosis TECHNIQUE: Thin section axial tomography images are obtained from just above the shoulder downward through the elbow joint without IV contrast. Coronal and sagittal images were reconstructed. Auto dosage reduction and iterative reconstruction techniques employed. FINDINGS: There is significant deformity of the humeral head due to osteoarthritis and periarticular spurring. Is also periarticular spurring at the glenoid. There is atrophy of the supraspinatus muscle and apparent retraction of the supraspinatus tendon. There is no significant joint effusion. No fracture is identified. There is increased density and heterogeneity as well as swelling of the medial head of the triceps muscle which suggests an internal hemorrhage and hematoma. This appears to be somewhat contained within the fascia IMPRESSION: Severe degenerative change in the shoulder No humeral fracture seen Swelling of the medial head of the triceps muscle suggest internal hemorrhage and large hematoma within the fascia
[2021-01-15] MEDS: Losartan 50 MG Tab PO SCH (20:57)
[2021-01-15] MEDS: atorvaSTATin 10 MG Tab PO SCH (20:58)
[2021-01-15] MEDS: Hydrochlorothiazide 25 MG Tab PO SCH (20:58)
--- NOTE | 2021-01-15 22:45 | PCM.SN.2 ---
- Free Text/Narrative Note: call from [address] [place] [address] at 2100 O: pulse 97 blood pressure 136/78 serial hemoglobin 7.6, 7.3, now 6.5 A: Hypovolemia - hemoglobin 6.5 P: order 2 units of PRBC give 1 unit now recheck hemoglobin 2 hours after first unit is completed, if hemoglobin less than 7.0, will need to give additional unit of blood
[2021-01-16] MEDS: Sodium Chloride 0.9% 1,000 ML IV SCH (06:43)
[2021-01-16] MEDS ORDERED: Potassium Chloride 20 MEQ Tab.ER PO ONE (12:30)
[2021-01-16] MEDS: Losartan 50 MG Tab PO SCH (20:11)
[2021-01-16] MEDS: atorvaSTATin 10 MG Tab PO SCH (20:12)
[2021-01-16] MEDS: Hydrochlorothiazide 25 MG Tab PO SCH (20:12)
--- NOTE | 2021-01-16 21:33 | PCM.PN ---
- General Info Date of Service: 01/16/21 Admission Dx/Problem (Free Text): Admission Diagnosis/Problem Admission Diagnosis/Problem right arm hematoma with secondary significant anemia Subjective Update: Ms. Menchaca required a blood transfusion this morning. She is no longer having pain in the arm that is severe, she does have some pain in the arm. She was feeling significantly better and was wanting to go home around lunchtime however by this afternoon she had an episode of lightheadedness and almost fell. Because of this her and her decided that she should stay overnight. Functional Status: Reports: Pain Controlled, Tolerating Diet - Review of Systems General: Reports: No Symptoms, Fever, Appetite HEENT: Reports: No Symptoms Pulmonary: Reports: No Symptoms Cardiovascular: Reports: No Symptoms Gastrointestinal: Reports: No Symptoms Genitourinary: Reports: No Symptoms Musculoskeletal: Reports: Arm Pain Skin: Reports: Bruising Neurological: Reports: Dizziness Psychiatric: Reports: No Symptoms - Patient Data Vitals - Most Recent: Last Vital Signs Temp 98.6 F 01/16/21 20:05 Pulse 99 01/16/21 20:05 Resp 18 01/16/21 20:05 BP 129/73 01/16/21 20:11 Pulse Ox 93 L 01/16/21 20:05 Weight - Most Recent: 150 lb 0.005 oz I&O - Last 24 Hours: Intake & Output 01/16/21 01/16/21 01/16/21 06:59 14:59 22:59 Intake Total 376 Output Total 100 1000 300 Balance 276 -1000 -300 Lab Results Last 24 Hours: Laboratory Results - last 24 hr 01/15/21 01/16/21 01/16/21 Range/Units 12:55 05:20 05:20 WBC 6.8 (4.5-11.0) K/uL RBC 2.50 L (3.30-5.50) M/uL Hgb 8.1 L (12.0-15.0) g/dL Hct 23.8 L (36.0-48.0) % MCV 95 (80-98) fL MCH 32 H (27-31) pg MCHC 34 (32-36) % Plt Count 184 (150-400) K/uL Neut % (Auto) 62.7 (36-66) % Lymph % (Auto) 21.0 L (24-44) % [place] % (Auto) 15.6 H (2-6) % Eos % (Auto) 0.6 L (2-4) % Baso % (Auto) 0.1 (0-1) % PT 14.3 H (9.5-12.0) sec INR 1.32 H D (0.80-1.20) Sodium (140-148) mmol/L Potassium (3.6-5.2) mmol/L Chloride (100-108) mmol/L Carbon Dioxide (21-32) mmol/L Anion Gap (5.0-14.0) mmol/L BUN (7-18) mg/dL Creatinine (0.6-1.0) mg/dL Est Cr Clr Drug Dosing mL/min Estimated GFR (MDRD) (>60) Glucose (74-106) mg/dL Calcium (8.5-10.1) mg/dL Blood Type A POSITIVE Gel Antibody Screen Negative Crossmatch See Detail 01/16/21 01/16/21 Range/Units 05:20 14:55 WBC (4.5-11.0) K/uL RBC (3.30-5.50) M/uL Hgb 8.7 L (12.0-15.0) g/dL Hct (36.0-48.0) % MCV (80-98) fL MCH (27-31) pg MCHC (32-36) % Plt Count (150-400) K/uL Neut % (Auto) (36-66) % Lymph % (Auto) (24-44) % [place] % (Auto) (2-6) % Eos % (Auto) (2-4) % Baso % (Auto) (0-1) % PT (9.5-12.0) sec INR (0.80-1.20) Sodium 138 L (140-148) mmol/L Potassium 3.4 L (3.6-5.2) mmol/L Chloride 103 (100-108) mmol/L Carbon Dioxide 25 (21-32) mmol/L Anion Gap 13.4 (5.0-14.0) mmol/L BUN 24 H (7-18) mg/dL Creatinine 1.0 (0.6-1.0) mg/dL Est Cr Clr Drug Dosing 34.38 mL/min Estimated GFR (MDRD) 54 L (>60) Glucose 106 (74-106) mg/dL Calcium 7.5 L (8.5-10.1) mg/dL Blood Type Gel Antibody Screen Crossmatch Med Orders - Current: Current Medications Acetaminophen (Acetaminophen 325 Mg Tab) 650 mg PO Q4H PRN PRN Reason: Pain (Mild 1-3)/fever Last Admin: 01/15/21 21:01 Dose: 650 mg Documented by: Atorvastatin Calcium (Atorvastatin 10 Mg Tab) 10 mg PO BEDTIME [facility] Last Admin: 01/16/21 20:12 Dose: 10 mg Documented by: Hydrochlorothiazide (Hydrochlorothiazide 25 Mg Tab) 25 mg PO BEDTIME [facility] Last Admin: 01/16/21 20:12 Dose: 25 mg Documented by: Losartan Potassium (Losartan 50 Mg Tab) 100 mg PO BEDTIME [facility] Last Admin: 01/16/21 20:11 Dose: 100 mg Documented by: Ondansetron HCl (Ondansetron 4 Mg/2 Ml Sdv) 4 mg IV Q4H PRN PRN Reason: Nausea/Vomiting Last Admin: 01/15/21 12:30 Dose: 4 mg Documented by: Oxycodone HCl (Oxycodone 5 Mg Tab) 5 mg PO Q4H PRN PRN Reason: severe pain Last Admin: 01/15/21 23:27 Dose: 5 mg Documented by: Polyethylene Glycol (Polyethylene Glycol 3350 Powder 17 Gm Packet) 17 gm PO DAILY PRN PRN Reason: Constipation Sodium Chloride (Sodium Chloride 0.9% 10 Ml Syringe) 10 ml FLUSH ASDIRECTED PRN PRN Reason: Keep Vein Open Discontinued Medications Hydromorphone HCl (Hydromorphone 0.5 Mg/0.5 Ml Syringe) 0.5 mg IM ONETIME ONE Stop: 01/15/21 06:52 Last Admin: 01/15/21 07:14 Dose: 0.5 mg Documented by: Sodium Chloride (Normal Saline) 1,000 mls @ 125 mls/hr IV ASDIRECTED [facility] Last Admin: 01/16/21 06:43 Dose: 125 mls/hr Documented by: Phytonadione 5 mg/ Sodium (Chloride) 50.5 mls @ 100 mls/hr IV NOW ONE Stop: 01/15/21 12:15 Last Admin: 01/15/21 12:10 Dose: 100 mls/hr Documented by: Potassium Chloride (Potassium Chloride 20 Meq Tab.Er) 20 meq PO ONETIME ONE Stop: 01/16/21 12:31 Last Admin: 01/16/21 13:21 Dose: 20 meq Documented by: - Exam General: Alert, Oriented, Cooperative, No Acute Distress HEENT: Pupils Equal, EOMI, Mucous Membr. Moist/[place] Neck: Supple, Trachea Midline Lungs: Clear to Auscultation, Normal Respiratory Effort Cardiovascular: Regular Rate, Regular Rhythm GI/Abdominal Exam: Normal Bowel Sounds, Soft, Non-Tender, No Distention Extremities: Arm Pain, Other (Significant bruising and hematomas along the right arm, partial paresis of the right arm and hand and right leg) Skin: Warm, Dry, Intact, Ecchymosis Neurological: No New Focal Deficit, Cranial Nerves Intact Psy/Mental Status: Alert, Normal Affect, Normal Mood - Patient Data Lab Results Last 24 hrs: Laboratory Results - last 24 hr 01/15/21 01/16/21 01/16/21 Range/Units 12:55 05:20 05:20 WBC 6.8 (4.5-11.0) K/uL RBC 2.50 L (3.30-5.50) M/uL Hgb 8.1 L (12.0-15.0) g/dL Hct 23.8 L (36.0-48.0) % MCV 95 (80-98) fL MCH 32 H (27-31) pg MCHC 34 (32-36) % Plt Count 184 (150-400) K/uL Neut % (Auto) 62.7 (36-66) % Lymph % (Auto) 21.0 L (24-44) % [place] % (Auto) 15.6 H (2-6) % Eos % (Auto) 0.6 L (2-4) % Baso % (Auto) 0.1 (0-1) % PT 14.3 H (9.5-12.0) sec INR 1.32 H D (0.80-1.20) Sodium (140-148) mmol/L Potassium (3.6-5.2) mmol/L Chloride (100-108) mmol/L Carbon Dioxide (21-32) mmol/L Anion Gap (5.0-14.0) mmol/L BUN (7-18) mg/dL Creatinine (0.6-1.0) mg/dL Est Cr Clr Drug Dosing mL/min Estimated GFR (MDRD) (>60) Glucose (74-106) mg/dL Calcium (8.5-10.1) mg/dL Blood Type A POSITIVE Gel Antibody Screen Negative Crossmatch See Detail 01/16/21 01/16/21 Range/Units 05:20 14:55 WBC (4.5-11.0) K/uL RBC (3.30-5.50) M/uL Hgb 8.7 L (12.0-15.0) g/dL Hct (36.0-48.0) % MCV (80-98) fL MCH (27-31) pg MCHC (32-36) % Plt Count (150-400) K/uL Neut % (Auto) (36-66) % Lymph % (Auto) (24-44) % [place] % (Auto) (2-6) % Eos % (Auto) (2-4) % Baso % (Auto) (0-1) % PT (9.5-12.0) sec INR (0.80-1.20) Sodium 138 L (140-148) mmol/L Potassium 3.4 L (3.6-5.2) mmol/L Chloride 103 (100-108) mmol/L Carbon Dioxide 25 (21-32) mmol/L Anion Gap 13.4 (5.0-14.0) mmol/L BUN 24 H (7-18) mg/dL Creatinine 1.0 (0.6-1.0) mg/dL Est Cr Clr Drug Dosing 34.38 mL/min Estimated GFR (MDRD) 54 L (>60) Glucose 106 (74-106) mg/dL Calcium 7.5 L (8.5-10.1) mg/dL Blood Type Gel Antibody Screen Crossmatch Result Diagrams: 01/16/21 14:55 01/16/21 05:20 Sepsis Event Note - Evaluation Sepsis Screening Result: No Definite Risk - Focused Exam Vital Signs: Vital Signs Temp Pulse Resp BP BP BP Pulse Ox 01/16/21 20:11 129/73 01/16/21 20:05 98.6 F 99 18 126/52 L 93 L 01/16/21 14:38 97.7 F 78 16 122/43 L 92 L 01/16/21 11:07 97.8 F 89 16 99/36 L 97 - Problem List & Annotations (1) Blood loss anemia SNOMED Code(s): 060138783 Code(s): D50.0 - IRON DEFICIENCY ANEMIA SECONDARY TO BLOOD LOSS (CHRONIC) Status: Acute Current Visit: Yes (2) Supratherapeutic INR SNOMED Code(s): 927658716 Code(s): R79.1 - ABNORMAL COAGULATION PROFILE Status: Acute Current Vis it: Yes (3) Traumatic hematoma of right upper arm SNOMED Code(s): 05008987 Code(s): S40.021A - CONTUSION OF RIGHT UPPER ARM, INITIAL ENCOUNTER Status: Acute Current Visit: Yes Qualifiers: Encounter type: initial encounter Qualified Code(s): S40.021A - Contusion of right upper arm, initial encounter - Problem List Review Problem List Initiated/Reviewed/Updated: Yes - Plan Plan:: ASSESSMENT AND PLAN HEMATOMA RIGHT UPPER EXTREMITY-secondary to a fall, complicated by anticoagulation with warfarin and aspirin. INR obtained in the emergency room is supratherapeutic, likely contributing to ongoing bleeding. X-rays have shown no evidence of fracture. 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 -Keep the arm elevated -Reverse anticoagulation with vitamin K 5 mg IV-decreased INR into a manageable range of 1.2 -Hold warfarin and aspirin -Will not continue warfarin upon discharge, will give baby aspirin daily-will need follow-up and the clinic was asked why she was on anticoagulation and they were asked to address this when she comes for her follow-up appointment on Wednesday CHRONIC ANTICOAGULATION WITH WARFARIN-she reports that she has been on warfarin since her CVA approximately 20 years ago -Management as above HYPERTENSION -Continue outpatient medications HISTORY OF PREVIOUS CVA-residual right-sided weakness MAINTENANCE ISSUES -DVT prophylaxis; SCUDs, hold on anticoagulation secondary to bleeding -GI prophylaxis; not indicated -Méndez catheter; not indicated -Nutrition; regular diet -Nicotinic dependence; not required CODE STATUS-FULL CODE Plan: Will discharge tomorrow as long as she continues to not have symptoms. Will have follow-up with her primary to discuss future use of anticoagulation. Will be sent home on a baby aspirin without warfarin. DISPOSITION-anticipate discharge to home after the hospital stay. PRIMARY CARE PROVIDER-Dr. Sara Hastings, DO
[2021-01-17 11:42] VITALS: BP 101/56; PULSE 98
--- NOTE | 2021-01-20 09:18 | PCM.DCSUM1 ---
Discharge Summary - Hospital Course Free Text/Narrative:: Ms. Menchaca is a 75-year-old female who was admitted for pain management and hematoma of the right upper extremity following an injury 4 days prior to admission. She had fallen and had increasing ecchymosis and swelling in the right upper extremity. She was on warfarin with a supratherapeutic INR. She was given vitamin K and the warfarin was held. She had been on warfarin for a stroke she had had 20 years prior with no additional episodes, therefore she was not restarted on her warfarin before discharge. Her clinic was notified via phone that we would not be continuing her warfarin and further evaluation for continuation of this medication would need to be made through them. Patient was notified of this and agreed with the plan. During her stay she did require blood transfusion of 2 units. Diagnosis: Stroke: No Modified Jerrell Scale: No Signif.Disability Despite Sympt.Able to Carry Out Usual Act./Duties Modified Dewey Scale Score: 1 - Discharge Data Discharge Date: 01/17/21 Discharge Disposition: Home, Self-Care 01 Condition: Stable - Referral to Home Health Primary Care Physician: Aidan Ruiz MD - Discharge Diagnosis/Problem(s) (1) Supratherapeutic INR SNOMED Code(s): 971527038 ICD Code: R79.1 - ABNORMAL COAGULATION PROFILE Status: Acute (2) Traumatic hematoma of right upper arm SNOMED Code(s): 16479457 ICD Code: S40.021A - CONTUSION OF RIGHT UPPER ARM, INITIAL ENCOUNTER Status: Acute Qualifiers: Encounter type: initial encounter Qualified Code(s): S40.021A - Contusion of right upper arm, initial encounter (3) Acute blood loss anemia SNOMED Code(s): 173141227 ICD Code: D62 - ACUTE POSTHEMORRHAGIC ANEMIA Status: Acute - Patient Summary/Data Consults: Consultations 01/15/21 16:23 PT Evaluation and Treatment [CONS] Routine Please Evaluate and Treat. PT Reason for Consult: Balance This query below is only for informational purposes and is not editable. Admission Diagnosis/Problem: Bleeding - Discharge Plan Home Medications: Home Meds Aspirin [Adult Low Dose Aspirin EC] 81 mg PO DAILY 08/26/16 [History] Losartan/Hydrochlorothiazide [Losartan-HCTZ 100-25 MG] 1 tab PO BEDTIME 08/26/16 [History] Simvastatin [Zocor] 20 mg PO BEDTIME 08/26/16 [History] A,C,E/Zinc/Sod Yen/Jagdish/Lutein [Eye Multivitamin-Lutein Tablet] 1 each PO DAILY 01/15/21 [History] Multivitamin 1 each PO DAILY 01/15/21 [History] Acetaminophen [Tylenol] 650 mg PO Q4H PRN tablet 01/17/21 [Rx] Patient Handouts: Preventing Problems After Surgery, Hematoma, Gknq-ql-Lcoh, How to Prevent Constipation After Surgery Forms: ED Department Discharge Referrals: Wendy Peng, PT [Physical Therapist] - 01/28/21 10:30 am (Please arrive 15 minutes early to register for your appointment. Use the ER entrance and PT registration is located in the basement of the hospital.) - Discharge Summary/Plan Comment DC Time >30 min.: Yes Total # of Minutes for Discharge Time: 60 - General Info Date of Service: 01/17/21 Admission Dx/Problem (Free Text: Admission Diagnosis/Problem Admission Diagnosis/Problem right arm hematoma with secondary blood loss anemia requiring transfusion Subjective Update: On the day of discharge Ms. Menchaca no longer required transfusion and her hemoglobin had stabilized. She was feeling well and ready to go home. She had no complaints other than bruising and tolerable pain in the right arm. Functional Status: Reports: Pain Controlled, Tolerating Diet. Denies: New Symptoms - Review of Systems General: Reports: No Symptoms HEENT: Reports: No Symptoms Pulmonary: Reports: No Symptoms Cardiovascular: Reports: No Symptoms Gastrointestinal: Reports: No Symptoms Genitourinary: Reports: No Symptoms Musculoskeletal: Reports: Arm Pain, Other (Swelling of the right arm) Skin: Reports: Bruising Neurological: Reports: No Symptoms Psychiatric: Reports: No Symptoms - Patient Data Vitals - Most Recent: Last Vital Signs Temp 96.6 F L 01/17/21 11:00 Pulse 98 01/17/21 11:00 Resp 18 01/17/21 11:00 BP 101/56 L 01/17/21 11:00 Pulse Ox 96 01/17/21 11:00 Weight - Most Recent: 150 lb 0.005 oz Med Orders - Current: Current Medications Discontinued Medications Acetaminophen (Acetaminophen 325 Mg Tab) 650 mg PO Q4H PRN PRN Reason: Pain (Mild 1-3)/fever Last Admin: 01/15/21 21:01 Dose: 650 mg Documented by: Atorvastatin Calcium (Atorvastatin 10 Mg Tab) 10 mg PO BEDTIME [facility] Last Admin: 01/16/21 20:12 Dose: 10 mg Documented by: Hydrochlorothiazide (Hydrochlorothiazide 25 Mg Tab) 25 mg PO BEDTIME [facility] Last Admin: 01/16/21 20:12 Dose: 25 mg Documented by: Hydromorphone HCl (Hydromorphone 0.5 Mg/0.5 Ml Syringe) 0.5 mg IM ONETIME ONE Stop: 01/15/21 06:52 Last Admin: 01/15/21 07:14 Dose: 0.5 mg Documented by: Sodium Chloride (Normal Saline) 1,000 mls @ 125 mls/hr IV ASDIRECTED [facility] Last Admin: 01/16/21 06:43 Dose: 125 mls/hr Documented by: Phytonadione 5 mg/ Sodium (Chloride) 50.5 mls @ 100 mls/hr IV NOW ONE Stop: 01/15/21 12:15 Last Admin: 01/15/21 12:10 Dose: 100 mls/hr Documented by: Losartan Potassium (Losartan 50 Mg Tab) 100 mg PO BEDTIME [facility] Last Admin: 01/16/21 20:11 Dose: 100 mg Documented by: Ondansetron HCl (Ondansetron 4 Mg/2 Ml Sdv) 4 mg IV Q4H PRN PRN Reason: Nausea/Vomiting Last Admin: 01/15/21 12:30 Dose: 4 mg Documented by: Oxycodone HCl (Oxycodone 5 Mg Tab) 5 mg PO Q4H PRN PRN Reason: severe pain Last Admin: 01/15/21 23:27 Dose: 5 mg Documented by: Polyethylene Glycol (Polyethylene Glycol 3350 Powder 17 Gm Packet) 17 gm PO DAILY PRN PRN Reason: Constipation Potassium Chloride (Potassium Chloride 20 Meq Tab.Er) 20 meq PO ONETIME ONE Stop: 01/16/21 12:31 Last Admin: 01/16/21 13:21 Dose: 20 meq Documented by: Sodium Chloride (Sodium Chloride 0.9% 10 Ml Syringe) 10 ml FLUSH ASDIRECTED PRN PRN Reason: Keep Vein Open - Exam General: Reports: Alert, Oriented, Cooperative, No Acute Distress HEENT: Reports: Pupils Equal, EOMI, Mucous Membr. Moist/[place] Neck: Reports: Supple, Trachea Midline Lungs: Reports: Clear to Auscultation, Normal Respiratory Effort Cardiovascular: Reports: Regular Rate, Regular Rhythm GI/Abdominal Exam: Normal Bowel Sounds, Soft, Non-Tender, No Distention Extremities: No Pedal Edema, Arm Pain, Other (Significant swelling in the right arm) Skin: Reports: Warm, Dry, Intact, Ecchymosis Neurological: Reports: No New Focal Deficit Psy/Mental Status: Reports: Alert, Normal Affect, Normal Mood *Q Meaningful Use (DIS) - VTE *Q VTE Pharmacological Contraindications *Q: High INR Value
== END 2021-01-17 13:20 | disposition home or self-care (01) ==
LOC: JP.ED 06:08 → JP.MS 08:38
PROVIDERS: ADMIT Hospitalist; ATTEND Hospitalist
DX: S40.021A Contusion of right upper arm, initial encounter (principal); R79.1 Abnormal coagulation profile; E78.00 Pure hypercholesterolemia, unspecified; D62 Acute posthemorrhagic anemia; I10 Essential (primary) hypertension; E66.9 Obesity, unspecified; Z87.891 Personal history of nicotine dependence; Z79.82 Long term (current) use of aspirin; Z79.01 Long term (current) use of anticoagulants; Z88.8 Allergy status to other drugs, medicaments and biological substances; Z88.0 Allergy status to penicillin; W19.XXXA Unspecified fall, initial encounter; Z68.29 Body mass index [BMI] 29.0-29.9, adult
CPT/HCPCS: 36415; 36430; 73060; 73200; 80048; 80053; 85018; 85025; 85027; 85610; 86850; 86900; 86901; 86920; 86922; 96372; 97110; 97116; 97162; 97535; 99284; A9270; J1170; J2405; J3430; J7030; P9016; 96365; 97530-GP; G0378

== ENCOUNTER 2022-05-18 14:10 | Emergency (ER) | payer MEDICARE, BC ==
[2022-05-18 14:34] VITALS: BP 147/77; PULSE 93
[2022-05-18] MEDS ORDERED: Enoxaparin 60 MG/0.6 ML Syringe SUBCUT ONE (16:22)
[2022-05-18] MEDS ORDERED: Enoxaparin 80 MG/0.8 ML Syringe SUBCUT ONE (16:45)
== END 2022-05-18 17:03 | disposition home or self-care (01) ==
LOC: JP.ED 14:10
DX: I82.411 Acute embolism and thrombosis of right femoral vein (principal); I10 Essential (primary) hypertension; E66.9 Obesity, unspecified; Z68.28 Body mass index [BMI] 28.0-28.9, adult; Z88.8 Allergy status to other drugs, medicaments and biological substances; Z91.018 Allergy to other foods; Z79.899 Other long term (current) drug therapy; Z79.82 Long term (current) use of aspirin; Z87.891 Personal history of nicotine dependence; Z74.09 Other reduced mobility; Z86.73 Personal history of transient ischemic attack (TIA), and cerebral infarction without residual deficits; W05.0XXA Fall from non-moving wheelchair, initial encounter
CPT/HCPCS: 93971; 96372; 99284; J1650

== ENCOUNTER 2022-05-25 12:40 | Emergency (ER) | payer MEDICARE, BC ==
[2022-05-25 13:15] VITALS: BP 178/79; PULSE 92
== END 2022-05-25 15:14 | disposition home or self-care (01) ==
LOC: JP.ED 12:40
DX: I80.01 Phlebitis and thrombophlebitis of superficial vessels of right lower extremity (principal); I10 Essential (primary) hypertension; E66.9 Obesity, unspecified; Z68.28 Body mass index [BMI] 28.0-28.9, adult; Z88.1 Allergy status to other antibiotic agents; Z91.018 Allergy to other foods; Z79.82 Long term (current) use of aspirin; Z79.899 Other long term (current) drug therapy; Z87.891 Personal history of nicotine dependence
CPT/HCPCS: 99283

== ENCOUNTER 2022-10-08 06:52 | Day surgery (SDC) | payer MEDICARE, BC ==
[~2022-10-08 06:52] MED LIST: Dextrose 5%-Lactated Ringers 1,000 ML IV SCH
[2022-10-08] MEDS ORDERED: Propofol 200 MG/20 ML SDV ONE (07:09)
[2022-10-08] MEDS ORDERED: fentaNYL 50 MCG/ML SDV ONE (07:09)
[2022-10-08] MEDS ORDERED: Dextrose 5%-Lactated Ringers 1,000 ML IV SCH ×2 (07:30)
[2022-10-08 10:25] VITALS: PULSE 68
[2022-10-08 11:19] LABS: HEMATOCRIT 41.4 % (34.3-46.0); HEMOGLOBIN 14.3 g/dL (11.2-15.5); MEAN CORPUSCULAR HEMOGLOBIN 34.5 pg (31.6-35.5); MEAN CORPUSCULAR HGB CONC 34.5 g/dL (31.6-35.5); MEAN CORPUSCULAR VOLUME 99.8 fL (81.4-99.0); RED BLOOD CELL COUNT 4.15 M/uL (3.77-5.24); WHITE BLOOD CELL COUNT,WBC 5.6 K/uL (3.2-11.0)
[2022-10-08 11:26] VITALS: BP 148/68
[2022-10-08 11:48] LABS: ALANINE AMINOTRANSFERASE,ALT 97 U/L (12-78); ALBUMIN 3.3 g/dL (3.4-5.0); ALKALINE PHOSPHATASE 146 U/L (46-116); ASPARTATE AMNIOTRANSFERASE,AST 213 U/L (15-37); BILIRUBIN TOTAL 1.4 mg/dL (0.2-1.0); BLOOD UREA NITROGEN,BUN 8 mg/dL (7-18); CALCIUM 9.2 mg/dL (8.5-10.1); CARBON DIOXIDE,CO2 26 mmol/L (21-32); CHLORIDE,CL 98 mmol/L (100-108); CREATININE 1.1 mg/dL (0.6-1.0); EST CRCL DRUG DOSING (CG) 30.76 mL/min; ESTIMATED GFR 52 mL/min (>60); GLUCOSE RANDOM 175 mg/dL (74-106); POTASSIUM,K 3.1 mmol/L (3.6-5.2); PROTEIN TOTAL,TP 7.2 g/dL (6.4-8.2); SODIUM,NA 139 mmol/L (140-148)
[2022-10-08 11:51] LABS: A/G RATIO 0.9 (1.2-2.2); ANION GAP 18.1 mmol/L (5.0-14.0)
[2022-10-08 11:55] LABS: MAGNESIUM 1.1 mg/dL (1.8-2.4); PHOSPHORUS 2.7 mg/dL (2.5-4.9)
== END 2022-10-08 11:15 | disposition home or self-care (01) ==
LOC: JP.SDS 06:52
PROVIDERS: ATTEND Surgery
DX: K21.9 Gastro-esophageal reflux disease without esophagitis (principal); R13.10 Dysphagia, unspecified; K44.9 Diaphragmatic hernia without obstruction or gangrene; K31.5 Obstruction of duodenum; K31.A0 Gastric intestinal metaplasia, unspecified
CPT/HCPCS: 36415; 43239; 80053; 83735; 83880; 84100; 85027; 88305; J2704; J3010; J7121

== ENCOUNTER 2022-10-15 09:11 | Inpatient (IN) | payer MEDICARE, BC ==
[~2022-10-15 09:11] MED LIST changes: +Bupivacaine 0.5% 50 ML MDV ONE; +Dexamethasone 4 MG/ML SDV ONE; -Dextrose 5%-Lactated Ringers 1,000 ML IV SCH; +Glycopyrrolate 0.2 MG/ML 5 ML MDV ONE; +Lidocaine 1% with EPINEPHrine 1:100,000 50 ML MDV ONE; +Meropenem 500 MG SDV ONE; +Neostigmine Methylsulfate 1 MG/ML 5 ML Syringe ONE; +Ondansetron 4 MG/2 ML SDV ONE; +Propofol 200 MG/20 ML SDV ONE; +Rocuronium 50 MG/5 ML Vial ONE; +Succinylcholine 200 MG/10 ML MDV ONE; +fentaNYL 250 MCG/5 ML SDV ONE
[2022-10-15 10:08] LABS: ANION GAP 15.7 mmol/L (5.0-14.0); BLOOD UREA NITROGEN,BUN 10 mg/dL (7-18); CALCIUM 9.6 mg/dL (8.5-10.1); CARBON DIOXIDE,CO2 29 mmol/L (21-32); CHLORIDE,CL 97 mmol/L (100-108); ESTIMATED GFR 58 mL/min (>60); GLUCOSE RANDOM 94 mg/dL (74-106); MAGNESIUM 1.4 mg/dL (1.8-2.4); PHOSPHORUS 2.6 mg/dL (2.5-4.9); POTASSIUM,K 3.7 mmol/L (3.6-5.2); SODIUM,NA 138 mmol/L (140-148)
[2022-10-15] MEDS ORDERED: Ropivacaine 30 ML, dexAMETHasone 8 MG, EPINEPHrine 0.4 MG, Sodium Chloride 0.9% 47.6 ML NERVRT SCH ×4 (10:30)
[2022-10-15] MEDS ORDERED: Ketamine 500 MG/5 ML MDV IV SCH (10:30)
[2022-10-15] MEDS ORDERED: Ketamine 13 MG in Sodium Chloride 0.9% 19.87 ML IV SCH (10:30)
[2022-10-15] MEDS ORDERED: ceFAZolin 2 GM in Premix Bag 1 BAG IV ONE (10:30)
[2022-10-15] MEDS: Potassium Chloride 10 MEQ in Premix Bag 1 BAG IV SCH ×2 (10:38→13:00)
[2022-10-15] MEDS: Dextrose 5%-Lactated Ringers 1,000 ML IV SCH ×2 (10:44→14:38)
[2022-10-15] MEDS ORDERED: Phenylephrine 1% 10 MG/ML SDV ONE (12:17)
[2022-10-15] MEDS ORDERED: Sodium Chloride 0.9% 10 ML ONE (12:17)
[2022-10-15] MEDS ORDERED: hydrOXYzine HCl 50 MG/ML SDV IM ONE (13:44)
[2022-10-15] MEDS ORDERED: fentaNYL 50 MCG/ML SDV IVPUSH ONE (13:44)
[2022-10-15] MEDS ORDERED: Cyclobenzaprine 10 MG Tab PO PRN (14:27)
[2022-10-15] MEDS ORDERED: Dextrose 5%-Lact Ringers w/KCl 1,000 ML IV SCH (14:30)
[2022-10-15] MEDS ORDERED: hydrOXYzine HCl 50 MG/ML SDV IM PRN (15:00)
[2022-10-15] MEDS ORDERED: Acetaminophen 500 MG Tab PO PRN (15:00)
[2022-10-15] MEDS ORDERED: traMADol 50 MG Tab PO PRN (15:00)
[2022-10-15] MEDS ORDERED: HYDROmorphone 1 MG/ML Syringe IV PRN (15:00)
[2022-10-15] MEDS ORDERED: diphenhydrAMINE 50 MG/ML SDV IVPUSH PRN (15:00)
[2022-10-15] MEDS ORDERED: Labetalol 20 MG/4 ML Syringe IVPUSH PRN (15:00)
[2022-10-15] MEDS ORDERED: HYDROmorphone 0.5 MG/0.5 ML Syringe IVPUSH PRN (15:00)
[2022-10-15] MEDS ORDERED: Ondansetron 4 MG/2 ML SDV IVPUSH PRN (15:00)
[2022-10-15] MEDS ORDERED: Metoclopramide 10 MG/2 ML SDV IVPUSH PRN (15:00)
[2022-10-15] MEDS: Magnesium Sulfate/Water 2 GM in Premix Bag 1 BAG IV SCH ×2 (15:46→21:51)
[2022-10-15] MEDS ORDERED: MVI, Adult with Vitamin K 10 ML, Thiamine 200 MG, Zinc/Copper/Manganese/Selenium 1 ML i... IV SCH ×4 (16:00)
[2022-10-15] MEDS ORDERED: Pantoprazole 40 MG Vial IVPUSH SCH (16:00)
[2022-10-15] MEDS: ceFAZolin 1 GM in Premix Bag 1 BAG IV SCH (19:59)
[2022-10-15] MEDS: Heparin Sodium 5,000 Units/ML Vial SUBCUT SCH (19:59)
[2022-10-15] MEDS: Acetaminophen 500 MG Tab PO SCH (21:50)
[2022-10-16] MEDS ORDERED: Iopamidol 612 MG/ML 30 ML SDV PO STA (04:10)
[2022-10-16 04:32] LABS: HEMATOCRIT 33.4 % (34.3-46.0); HEMOGLOBIN 11.6 g/dL (11.2-15.5); IMMATURE GRAN ABSOLUTE AUTO 0.03 K/uL (0.00-0.23); IMMATURE GRAN PERCENT AUTO 0.4 % (0.0-0.7); LYMPHOCYTES PERCENT AUTO 3.6 % (11.4-47.7); MEAN CORPUSCULAR HEMOGLOBIN 34.1 pg (31.6-35.5); MEAN CORPUSCULAR HGB CONC 34.7 g/dL (31.6-35.5); MEAN CORPUSCULAR VOLUME 98.2 fL (81.4-99.0); MONOCYTES ABSOLUTE AUTO 0.67 K/uL (0.20-0.90); MONOCYTES PERCENT AUTO 7.9 % (3.3-12.6); NEUTROPHILS ABSOLUTE AUTO 7.44 K/uL (1.0-7.6); NEUTROPHILS PERCENT AUTO 88.1 % (40.0-78.1); PLATELET COUNT,PLT 138 K/uL (130-375); WHITE BLOOD CELL COUNT,WBC 8.4 K/uL (3.2-11.0)
[2022-10-16] MEDS: Acetaminophen 500 MG Tab PO SCH ×3 (04:47→20:33)
[2022-10-16] MEDS: ceFAZolin 1 GM in Premix Bag 1 BAG IV SCH ×2 (04:48→12:23)
[2022-10-16] MEDS: Magnesium Sulfate/Water 2 GM in Premix Bag 1 BAG IV SCH ×4 (04:52→23:00)
[2022-10-16 05:00] LABS: A/G RATIO 0.8 (1.2-2.2); ALANINE AMINOTRANSFERASE,ALT 95 U/L (12-78); ALBUMIN 2.8 g/dL (3.4-5.0); ALKALINE PHOSPHATASE 125 U/L (46-116); ASPARTATE AMNIOTRANSFERASE,AST 298 U/L (15-37); BILIRUBIN TOTAL 0.9 mg/dL (0.2-1.0); BLOOD UREA NITROGEN,BUN 12 mg/dL (7-18); CALCIUM 8.5 mg/dL (8.5-10.1); CARBON DIOXIDE,CO2 27 mmol/L (21-32); CHLORIDE,CL 99 mmol/L (100-108); CREATININE 1.2 mg/dL (0.6-1.0); ESTIMATED GFR 47 mL/min (>60); GLUCOSE RANDOM 310 mg/dL (74-106); PHOSPHORUS 2.2 mg/dL (2.5-4.9); POTASSIUM,K 4.8 mmol/L (3.6-5.2); PRO B-TYPE NATRIUR PEPT,BNPPRO 1753 pg/mL (5-450); PROTEIN TOTAL,TP 6.2 g/dL (6.4-8.2); SODIUM,NA 134 mmol/L (140-148)
[2022-10-16 05:01] LABS: ANION GAP 12.8 mmol/L (5.0-14.0)
[2022-10-16] MEDS ORDERED: Dextrose 5%-Lact Ringers w/KCl 1,000 ML IV SCH (07:45)
[2022-10-16] MEDS: Aspirin 81 MG Tab.EC PO SCH (09:12)
[2022-10-16] MEDS: Heparin Sodium 5,000 Units/ML Vial SUBCUT SCH (09:12)
[2022-10-16] MEDS: Dextrose 5%-Lactated Ringers 1,000 ML IV SCH (09:15)
[2022-10-16] MEDS: traMADol 50 MG Tab PO PRN ×3 (09:34→19:54)
[2022-10-16] MEDS: Pantoprazole 40 MG Tab.CR PO SCH (12:26)
[2022-10-16] MEDS ORDERED: MVI, Adult with Vitamin K 10 ML, Thiamine 200 MG, Zinc/Copper/Manganese/Selenium 1 ML i... IV SCH ×4 (16:00)
[2022-10-16] MEDS: Rivaroxaban 10 MG Tab PO SCH (16:17)
[2022-10-17] MEDS: Dextrose 5%-Lactated Ringers 1,000 ML IV SCH (02:20)
[2022-10-17] MEDS: Magnesium Sulfate/Water 2 GM in Premix Bag 1 BAG IV SCH ×4 (04:59→21:03)
[2022-10-17] MEDS: Acetaminophen 500 MG Tab PO SCH ×3 (05:00→20:54)
[2022-10-17] MEDS ORDERED: Sodium Chloride 0.9% 10 ML Syringe IV PRN (07:38)
[2022-10-17] MEDS: traMADol 50 MG Tab PO PRN ×2 (07:46→12:53)
[2022-10-17] MEDS ORDERED: Cyanocobalamin (Vitamin B12) 1,000 MCG/ML SDV IM ONE (09:00)
[2022-10-17] MEDS: Bisacodyl 5 MG Tab PO SCH ×2 (09:27→20:54)
[2022-10-17] MEDS: Pantoprazole 40 MG Tab.CR PO SCH (09:27)
[2022-10-17] MEDS: Docusate Sodium 100 MG Cap PO SCH ×2 (09:27→20:54)
[2022-10-17] MEDS: Aspirin 81 MG Tab.EC PO SCH (09:28)
[2022-10-17] MEDS: Rivaroxaban 10 MG Tab PO SCH (16:19)
[2022-10-18] MEDS: Acetaminophen 500 MG Tab PO SCH ×3 (04:32→20:04)
[2022-10-18] MEDS: Magnesium Sulfate/Water 2 GM in Premix Bag 1 BAG IV SCH ×2 (04:34→10:22)
[2022-10-18] MEDS: Pantoprazole 40 MG Tab.CR PO SCH (07:31)
[2022-10-18] MEDS ORDERED: Magnesium Hydroxide 400 MG/5 ML Susp 30 ML Cup PO ONE (08:00)
[2022-10-18] MEDS: Potassium Phosphates 15 MMOLE in Sodium Chloride 0.9% 250 ML IV SCH ×2 (08:38→11:48)
[2022-10-18] MEDS: Aspirin 81 MG Tab.EC PO SCH (08:50)
[2022-10-18] MEDS: Docusate Sodium 100 MG Cap PO SCH ×2 (08:50→20:04)
[2022-10-18] MEDS: Bisacodyl 5 MG Tab PO SCH ×2 (08:50→20:04)
[2022-10-18] MEDS: traMADol 50 MG Tab PO PRN ×2 (11:48→20:05)
[2022-10-18] MEDS: Rivaroxaban 10 MG Tab PO SCH (17:10)
[2022-10-19] MEDS: Acetaminophen 500 MG Tab PO SCH ×3 (04:32→20:50)
[2022-10-19 04:44] LABS: CALCIUM 7.4 mg/dL (8.5-10.1); CREATININE 1.2 mg/dL (0.6-1.0); EST CRCL DRUG DOSING (CG) 28.2 mL/min; PHOSPHORUS 3.2 mg/dL (2.5-4.9); POTASSIUM,K 4.2 mmol/L (3.6-5.2)
[2022-10-19 04:50] LABS: ANION GAP 9.2 mmol/L (5.0-14.0)
[2022-10-19] MEDS: Aspirin 81 MG Tab.EC PO SCH (08:10)
[2022-10-19] MEDS: Bisacodyl 5 MG Tab PO SCH ×2 (08:10→20:50)
[2022-10-19] MEDS: Docusate Sodium 100 MG Cap PO SCH ×2 (08:10→20:50)
[2022-10-19] MEDS: Pantoprazole 40 MG Tab.CR PO SCH (08:10)
[2022-10-19] MEDS: Rivaroxaban 10 MG Tab PO SCH (17:07)
[2022-10-20] MEDS: Acetaminophen 500 MG Tab PO SCH (04:00)
[2022-10-20] MEDS: Pantoprazole 40 MG Tab.CR PO SCH (07:38)
[2022-10-20] MEDS: Docusate Sodium 100 MG Cap PO SCH (08:11)
[2022-10-20] MEDS: Aspirin 81 MG Tab.EC PO SCH (08:12)
[2022-10-20] MEDS: Bisacodyl 5 MG Tab PO SCH (08:12)
[2022-10-20 10:56] VITALS: BP 137/60; PULSE 86
== END 2022-10-20 11:50 | DRG 327 ==
LOC: JP.SDSSCHI 09:11 → JP.MS 14:18
PROVIDERS: ADMIT Surgery; ATTEND Surgery
PROC: 0WBC4ZZ Excision of Mediastinum, Percutaneous Endoscopic Approach (ICD-10-PCS; principal; 2022-10-15)
PROC: 0FB24ZX Excision of Left Lobe Liver, Percutaneous Endoscopic Approach, Diagnostic (ICD-10-PCS; principal; 2022-10-15)
PROC: 0BQT4ZZ Repair Diaphragm, Percutaneous Endoscopic Approach (ICD-10-PCS; principal; 2022-10-15)
PROC: 0DH64UZ Insertion of Feeding Device into Stomach, Percutaneous Endoscopic Approach (ICD-10-PCS; principal; 2022-10-15)
DX: K44.9 Diaphragmatic hernia without obstruction or gangrene (principal); I69.951 Hemiplegia and hemiparesis following unspecified cerebrovascular disease affecting right dominant side; K21.9 Gastro-esophageal reflux disease without esophagitis; D15.2 Benign neoplasm of mediastinum; D64.9 Anemia, unspecified; I10 Essential (primary) hypertension; E78.00 Pure hypercholesterolemia, unspecified; M81.0 Age-related osteoporosis without current pathological fracture; Z96.651 Presence of right artificial knee joint; R13.10 Dysphagia, unspecified; Z88.8 Allergy status to other drugs, medicaments and biological substances; Z79.01 Long term (current) use of anticoagulants; Z98.890 Other specified postprocedural states; Z86.718 Personal history of other venous thrombosis and embolism; Z87.891 Personal history of nicotine dependence
CPT/HCPCS: 36415; 74240; 74240-26; 80048; 80053; 83735; 83880; 84100; 85025; 88302; 88305; 88307; 88313; 93005; 97161-GP; 97530-GP; A9270-GY; C1713; C1781; C9113; J0131; J0171; J0330; J0690; J1100; J1170; J1644; J2020; J2185; J2370; J2405; J2704; J2710; J2795; J3010; J3410; J3411; J3420; J3475; J3480; J3490; J7050; J7121; Q9967; U0002

== ENCOUNTER 2022-11-13 20:08 | Emergency (ER) | payer MEDICARE, BC ==
[2022-11-13 21:18] VITALS: BP 158/80; PULSE 107
[2022-11-13] MEDS ORDERED: Ketorolac 30 MG/ML SDV IM ONE (21:29)
== END 2022-11-13 23:10 | disposition home or self-care (01) ==
LOC: JP.ED 20:08
DX: M25.512 Pain in left shoulder (principal); I10 Essential (primary) hypertension; K21.9 Gastro-esophageal reflux disease without esophagitis; Z79.01 Long term (current) use of anticoagulants; Z88.8 Allergy status to other drugs, medicaments and biological substances; Z91.018 Allergy to other foods; Z79.82 Long term (current) use of aspirin; Z79.899 Other long term (current) drug therapy
CPT/HCPCS: 73030; 96372; 99283; J1885

== ENCOUNTER 2022-12-23 10:46 | Emergency (ER) | payer MEDICARE, BC ==
[2022-12-23 11:40] LABS: HEMATOCRIT 29.3 % (34.3-46.0); HEMOGLOBIN 9.6 g/dL (11.2-15.5); MEAN CORPUSCULAR HEMOGLOBIN 33.2 pg (31.6-35.5); MEAN CORPUSCULAR HGB CONC 32.8 g/dL (31.6-35.5); MEAN CORPUSCULAR VOLUME 101.4 fL (81.4-99.0); RED BLOOD CELL COUNT 2.89 M/uL (3.77-5.24); WHITE BLOOD CELL COUNT,WBC 7.5 K/uL (3.2-11.0)
[2022-12-23 11:58] LABS: INR 1.1
[2022-12-23 12:05] LABS: APPEARANCE,URINE CLOUDY (CLEAR); BILIRUBIN,URINE NEGATIVE (NEGATIVE); COLOR,URINE YELLOW (YELLOW); GLUCOSE,URINE NEGATIVE (NEGATIVE); KETONES,URINE NEGATIVE (NEGATIVE); LEUKOCYTE ESTERASE,URINE LARGE (NEGATIVE); NITRITE,URINE NEGATIVE (NEGATIVE); OCCULT BLOOD,URINE TRACE-INTACT (NEGATIVE); PROTEIN,URINE 30 mg/dL (NEGATIVE); UROBILINOGEN,URINE 0.2 EU/dL (0.2-1.0)
[2022-12-23 12:07] LABS: A/G RATIO 0.7 (1.2-2.2); ALANINE AMINOTRANSFERASE,ALT 17 U/L (12-78); ALBUMIN 2.4 g/dL (3.4-5.0); ALKALINE PHOSPHATASE 129 U/L (46-116); ASPARTATE AMNIOTRANSFERASE,AST 24 U/L (15-37); BILIRUBIN TOTAL 0.4 mg/dL (0.2-1.0); BLOOD UREA NITROGEN,BUN 8 mg/dL (7-18); CALCIUM 8.5 mg/dL (8.5-10.1); CARBON DIOXIDE,CO2 28 mmol/L (21-32); CHLORIDE,CL 103 mmol/L (100-108); CREATININE 0.6 mg/dL (0.6-1.0); EST CRCL DRUG DOSING (CG) 55.51 mL/min; ESTIMATED GFR 92 mL/min (>60); GLUCOSE RANDOM 105 mg/dL (74-106); POTASSIUM,K 3.2 mmol/L (3.6-5.2); PRO B-TYPE NATRIUR PEPT,BNPPRO 495 pg/mL (5-450); PROTEIN TOTAL,TP 5.9 g/dL (6.4-8.2); SODIUM,NA 140 mmol/L (140-148); TROPONIN I HIGH SENSITIVITY 7.4 pg/mL (<=60.3)
[2022-12-23 12:09] LABS: ANION GAP 12.2 mmol/L (5.0-14.0)
[2022-12-23 12:17] LABS: AMORPHOUS SEDIMENT,URINE FEW; BACTERIA,URINE MANY; EPITHELIAL CELLS,URINE FEW; MUCUS,URINE RARE; RBC,URINE 0-5 (0-5)
[2022-12-23] MEDS ORDERED: Sodium Chloride 0.9% 75 ML IV ONE (13:06)
[2022-12-23] MEDS ORDERED: Sodium Chloride 0.9% 10 ML Syringe FLUSH PRN (13:06)
[2022-12-23] MEDS ORDERED: Iopamidol 755 Mg/ML 100 ML Bottle IV SCH (13:15)
[2022-12-23 14:11] VITALS: BP 152/71; PULSE 90
[2022-12-24 18:13] LABS: ANA DIRECT Negative (Negative)
== END 2022-12-23 14:35 | disposition home or self-care (01) ==
LOC: JP.ED 10:46
DX: N30.00 Acute cystitis without hematuria (principal); D50.9 Iron deficiency anemia, unspecified; I31.39 Other pericardial effusion (noninflammatory); K21.9 Gastro-esophageal reflux disease without esophagitis; E78.00 Pure hypercholesterolemia, unspecified; I10 Essential (primary) hypertension; Z86.73 Personal history of transient ischemic attack (TIA), and cerebral infarction without residual deficits; Z87.891 Personal history of nicotine dependence; Z91.018 Allergy to other foods; Z88.8 Allergy status to other drugs, medicaments and biological substances; Z79.82 Long term (current) use of aspirin; Z79.01 Long term (current) use of anticoagulants; Z79.899 Other long term (current) drug therapy
CPT/HCPCS: 36415; 71045; 71275; 80053; 81001; 83880; 84484; 85027; 85379; 85610; 85651; 86038; 86140; 93005; 99285; J3490; Q9967; 93010; 99284

== ENCOUNTER 2023-07-22 12:40 | Emergency (ER) | payer MEDICARE, BC ==
[2023-07-22 13:15] VITALS: BP 143/80; PULSE 85
[2023-07-22 13:50] LABS: BASOPHILS PERCENT AUTO 0.2 % (0.1-1.3); EOSINOPHILS ABSOLUTE AUTO 0.07 K/uL (0.00-0.40); EOSINOPHILS PERCENT AUTO 0.6 % (0.0-5.4); HEMATOCRIT 34.7 % (34.3-46.0); HEMOGLOBIN 11.4 g/dL (11.2-15.5); IMMATURE GRAN ABSOLUTE AUTO 0.04 K/uL (0.00-0.23); IMMATURE GRAN PERCENT AUTO 0.4 % (0.0-0.7); LYMPHOCYTES ABSOLUTE AUTO 1.64 K/uL (0.8-3.3); LYMPHOCYTES PERCENT AUTO 14.6 % (11.4-47.7); MEAN CORPUSCULAR HEMOGLOBIN 30.5 pg (31.6-35.5); MEAN CORPUSCULAR HGB CONC 32.9 g/dL (31.6-35.5); MEAN CORPUSCULAR VOLUME 92.8 fL (81.4-99.0); MONOCYTES PERCENT AUTO 11.6 % (3.3-12.6); NEUTROPHILS ABSOLUTE AUTO 8.18 K/uL (1.0-7.6); NEUTROPHILS PERCENT AUTO 72.6 % (40.0-78.1); PLATELET COUNT,PLT 329 K/uL (130-375); RED BLOOD CELL COUNT 3.74 M/uL (3.77-5.24); WHITE BLOOD CELL COUNT,WBC 11.3 K/uL (3.2-11.0)
[2023-07-22 13:53] LABS: BASOPHILS ABSOLUTE AUTO 0.02 K/uL (0.00-0.10)
[2023-07-22] MEDS: Glycerin 2.1 GM Supp RECTAL ONE (14:01)
[2023-07-22] MEDS: Sennosides/Docusate Sodium 50-8.6 MG Tab PO ONE (14:01)
[2023-07-22] MEDS: Magnesium Hydroxide 400 MG/5 ML Susp 30 ML Cup PO ONE (14:01)
[2023-07-22 14:04] LABS: ANION GAP 11.2 mmol/L (5.0-14.0); CALCIUM 9.5 mg/dL (8.5-10.1); EST CRCL DRUG DOSING (CG) 33.3 mL/min; POTASSIUM,K 3.2 mmol/L (3.6-5.2)
[2023-07-22 14:40] LABS: APPEARANCE,URINE CLOUDY (CLEAR); BILIRUBIN,URINE NEGATIVE (NEGATIVE); COLOR,URINE YELLOW (YELLOW); GLUCOSE,URINE NEGATIVE (NEGATIVE); KETONES,URINE NEGATIVE (NEGATIVE); LEUKOCYTE ESTERASE,URINE SMALL (NEGATIVE); NITRITE,URINE NEGATIVE (NEGATIVE); OCCULT BLOOD,URINE NEGATIVE (NEGATIVE); PROTEIN,URINE NEGATIVE (NEGATIVE); UROBILINOGEN,URINE 0.2 EU/dL (0.2-1.0)
[2023-07-22 14:48] LABS: AMORPHOUS SEDIMENT,URINE NOT SEEN; BACTERIA,URINE MANY; EPITHELIAL CELLS,URINE RARE; MUCUS,URINE RARE; RBC,URINE 0-5 (0-5); WBC,URINE PACKED (0-5)
== END 2023-07-22 15:29 | disposition home or self-care (01) ==
LOC: JP.ED 12:40
DX: K59.03 Drug induced constipation (principal); T40.2X5A Adverse effect of other opioids, initial encounter; K92.1 Melena; E87.6 Hypokalemia; R82.71 Bacteriuria; Z86.73 Personal history of transient ischemic attack (TIA), and cerebral infarction without residual deficits; Z90.89 Acquired absence of other organs; Z79.01 Long term (current) use of anticoagulants; I10 Essential (primary) hypertension; E78.00 Pure hypercholesterolemia, unspecified; K21.9 Gastro-esophageal reflux disease without esophagitis; Z79.82 Long term (current) use of aspirin; Z79.899 Other long term (current) drug therapy; Z88.8 Allergy status to other drugs, medicaments and biological substances; Z91.018 Allergy to other foods
CPT/HCPCS: 36415; 80048; 81001; 85025; 87086; 87088; 87186; 99284; A9270

== ENCOUNTER 2023-08-02 10:57 | Day surgery (SDC) | payer MEDICARE, BC ==
[~2023-08-02 10:57] MED LIST changes: -Bupivacaine 0.5% 50 ML MDV ONE; -Dexamethasone 4 MG/ML SDV ONE; -Glycopyrrolate 0.2 MG/ML 5 ML MDV ONE; +Lactated Ringers 1,000 ML IV SCH; -Lidocaine 1% with EPINEPHrine 1:100,000 50 ML MDV ONE; -Meropenem 500 MG SDV ONE; -Neostigmine Methylsulfate 1 MG/ML 5 ML Syringe ONE; -Ondansetron 4 MG/2 ML SDV ONE; -Propofol 200 MG/20 ML SDV ONE; -Rocuronium 50 MG/5 ML Vial ONE; -Succinylcholine 200 MG/10 ML MDV ONE; -fentaNYL 250 MCG/5 ML SDV ONE
[2023-08-02 12:00] VITALS: BP 108/59; PULSE 83
[2023-08-02 12:45] LABS: APPEARANCE,URINE SLIGHTLY CLOUDY (CLEAR); BILIRUBIN,URINE SMALL (NEGATIVE); COLOR,URINE YELLOW (YELLOW); GLUCOSE,URINE NEGATIVE (NEGATIVE); KETONES,URINE NEGATIVE (NEGATIVE); LEUKOCYTE ESTERASE,URINE SMALL (NEGATIVE); NITRITE,URINE NEGATIVE (NEGATIVE); OCCULT BLOOD,URINE NEGATIVE (NEGATIVE); PROTEIN,URINE TRACE mg/dL (NEGATIVE); UROBILINOGEN,URINE 0.2 EU/dL (0.2-1.0)
[2023-08-02 12:51] LABS: AMORPHOUS SEDIMENT,URINE MANY; BACTERIA,URINE MODERATE; EPITHELIAL CELLS,URINE MODERATE; MUCUS,URINE MANY; RBC,URINE NOT SEEN (0-5); WBC,URINE 0-5 (0-5)
== END 2023-08-02 13:37 | disposition home or self-care (01) ==
LOC: JP.SDS 10:57
PROVIDERS: ATTEND Student in an Organized Health Care Education/Training Program
DX: N39.0 Urinary tract infection, site not specified (principal); Z53.9 Procedure and treatment not carried out, unspecified reason
CPT/HCPCS: 81001; 87086

== ENCOUNTER 2023-08-11 09:15 | Day surgery (SDC) | payer MEDICARE, BC ==
[2023-08-11] MEDS ORDERED: Propofol 200 MG/20 ML SDV ONE (09:36)
[2023-08-11] MEDS ORDERED: fentaNYL 50 MCG/ML SDV ONE (09:36)
[2023-08-11] MEDS: Lactated Ringers 1,000 ML IV SCH (10:09)
[2023-08-11 12:31] VITALS: BP 121/83; PULSE 71
== END 2023-08-11 13:07 | disposition home or self-care (01) ==
LOC: JP.SDS 09:15
PROVIDERS: ATTEND Student in an Organized Health Care Education/Training Program
DX: K29.50 Unspecified chronic gastritis without bleeding (principal); K21.9 Gastro-esophageal reflux disease without esophagitis; R13.10 Dysphagia, unspecified; I10 Essential (primary) hypertension; E78.00 Pure hypercholesterolemia, unspecified; Z87.891 Personal history of nicotine dependence; Z79.82 Long term (current) use of aspirin; Z79.899 Other long term (current) drug therapy; Z88.8 Allergy status to other drugs, medicaments and biological substances
CPT/HCPCS: 43239; 88305; 88342; J2704; J3010; J7120

== ENCOUNTER 2023-08-27 21:46 | Emergency (ER) | payer MEDICARE, BC ==
[2023-08-27 21:53] VITALS: BP 118/62; PULSE 87
[2023-08-27 22:25] LABS: BASOPHILS ABSOLUTE AUTO 0.03 K/uL (0.00-0.10); BASOPHILS PERCENT AUTO 0.5 % (0.1-1.3); EOSINOPHILS ABSOLUTE AUTO 0.28 K/uL (0.00-0.40); EOSINOPHILS PERCENT AUTO 4.2 % (0.0-5.4); HEMATOCRIT 33.6 % (34.3-46.0); HEMOGLOBIN 11.2 g/dL (11.2-15.5); IMMATURE GRAN PERCENT AUTO 0.2 % (0.0-0.7); LYMPHOCYTES ABSOLUTE AUTO 2.51 K/uL (0.8-3.3); LYMPHOCYTES PERCENT AUTO 37.8 % (11.4-47.7); MEAN CORPUSCULAR HGB CONC 33.3 g/dL (31.6-35.5); MEAN CORPUSCULAR VOLUME 90.1 fL (81.4-99.0); MONOCYTES PERCENT AUTO 13.6 % (3.3-12.6); NEUTROPHILS ABSOLUTE AUTO 2.91 K/uL (1.0-7.6); NEUTROPHILS PERCENT AUTO 43.7 % (40.0-78.1); PLATELET COUNT,PLT 279 K/uL (130-375); RED BLOOD CELL COUNT 3.73 M/uL (3.77-5.24); WHITE BLOOD CELL COUNT,WBC 6.6 K/uL (3.2-11.0)
[2023-08-27 22:32] LABS: IMMATURE GRAN ABSOLUTE AUTO 0.01 K/uL (0.00-0.23)
[2023-08-27 22:46] LABS: A/G RATIO 0.7 (1.2-2.2); ALANINE AMINOTRANSFERASE,ALT 17 U/L (12-78); ALBUMIN 2.7 g/dL (3.4-5.0); ALKALINE PHOSPHATASE 129 U/L (46-116); ASPARTATE AMNIOTRANSFERASE,AST 26 U/L (15-37); BILIRUBIN TOTAL 0.2 mg/dL (0.2-1.0); BLOOD UREA NITROGEN,BUN 14 mg/dL (7-18); CALCIUM 9.1 mg/dL (8.5-10.1); CARBON DIOXIDE,CO2 26 mmol/L (21-32); CHLORIDE,CL 104 mmol/L (100-108); CREATININE 0.8 mg/dL (0.6-1.0); EST CRCL DRUG DOSING (CG) 41.63 mL/min; ESTIMATED GFR 75 mL/min (>60); GLUCOSE RANDOM 105 mg/dL (74-106); PROTEIN TOTAL,TP 6.7 g/dL (6.4-8.2); SODIUM,NA 141 mmol/L (140-148)
[2023-08-27] MEDS: Potassium Chloride 20 MEQ Tab.ER PO ONE (23:52)
== END 2023-08-28 | disposition home or self-care (01) ==
LOC: JP.ED 21:46
DX: E87.6 Hypokalemia (principal); E87.8 Other disorders of electrolyte and fluid balance, not elsewhere classified; I10 Essential (primary) hypertension; E78.00 Pure hypercholesterolemia, unspecified; K21.9 Gastro-esophageal reflux disease without esophagitis; Z79.82 Long term (current) use of aspirin; Z79.899 Other long term (current) drug therapy; Z88.8 Allergy status to other drugs, medicaments and biological substances; Z91.018 Allergy to other foods
CPT/HCPCS: 36415; 80053; 83735; 85025; 99283; A9270

== ENCOUNTER 2024-03-06 08:45 | Inpatient (IN) | payer MEDICARE, BC ==
[~2024-03-06 08:45] MED LIST changes: +Nozin Nasal Sanitizer NASBOTH SCH
[2024-03-06] MEDS ORDERED: fentaNYL 100 MCG/2 ML SDV ONE ×3 (09:22→14:39)
[2024-03-06] MEDS ORDERED: Midazolam 1 MG/ML 2 ML SDV ONE (09:22)
[2024-03-06] MEDS ORDERED: Propofol 200 MG/20 ML SDV ONE (09:23)
[2024-03-06] MEDS ORDERED: Bupivacaine 0.5% 30 ML SDV ONE (09:24)
[2024-03-06] MEDS ORDERED: Ondansetron 4 MG/2 ML SDV ONE (09:27)
[2024-03-06] MEDS ORDERED: Dexamethasone 4 MG/ML SDV ONE (09:27)
[2024-03-06 09:42] LABS: ANION GAP 9.6 mmol/L (5.0-14.0); BLOOD UREA NITROGEN,BUN 12 mg/dL (7-18); CALCIUM 9.9 mg/dL (8.5-10.1); CARBON DIOXIDE,CO2 28 mmol/L (21-32); CHLORIDE,CL 104 mmol/L (100-108); CREATININE 0.9 mg/dL (0.6-1.0); ESTIMATED GFR 65 mL/min (>60); GLUCOSE RANDOM 108 mg/dL (74-106); POTASSIUM,K 3.6 mmol/L (3.6-5.2); SODIUM,NA 142 mmol/L (140-148)
[2024-03-06] MEDS: Nozin Nasal Sanitizer NASBOTH SCH ×2 (10:11→20:00)
[2024-03-06] MEDS: Lactated Ringers 1,000 ML IV SCH (10:14)
[2024-03-06] MEDS ORDERED: Magnesium Hydroxide 400 MG/5 ML Susp 30 ML Cup PO PRN (11:50)
[2024-03-06] MEDS ORDERED: Morphine 2 MG/ML SYRINGE IV PRN (11:50)
[2024-03-06] MEDS ORDERED: Cetirizine 10 MG Tab PO PRN (11:54)
[2024-03-06] MEDS ORDERED: ceFAZolin 2 GM in Sodium Chloride 0.9% 50 ML IV SCH (12:00)
[2024-03-06] MEDS: ceFAZolin 2 GM in Premix Bag 1 BAG IV ONE (12:10)
[2024-03-06] MEDS ORDERED: ePHEDrine 50 MG/ML SDV ONE (12:34)
[2024-03-06] MEDS ORDERED: Sodium Chloride 0.9% 10 ML ONE (12:34)
[2024-03-06] MEDS: Bupivacaine 0.5% 50 ML MDV ONE (13:00)
[2024-03-06] MEDS ORDERED: Lactated Ringers 1,000 ML ONE (13:28)
[2024-03-06] MEDS: Acetaminophen 325 MG Tab PO SCH (16:39)
[2024-03-06] MEDS: Sodium Chloride 0.9% 1,000 ML IV SCH (17:12)
[2024-03-06] MEDS: oxyCODONE 5 MG Tab PO PRN (17:13)
[2024-03-06] MEDS: ceFAZolin 2 GM in Premix Bag 1 BAG IV SCH (19:19)
[2024-03-06] MEDS: Magnesium Oxide 400 MG Tab PO SCH (20:00)
[2024-03-06] MEDS: Potassium Chloride 20 MEQ Tab.ER PO SCH (20:01)
[2024-03-06] MEDS ORDERED: Non-Formulary Medication 1 Each (Potassium Chloride [Potassium Chloride] 20 MEQ Tablet.Er) PO SCH (21:00)
[2024-03-06] MEDS ORDERED: Triamcinolone Acetonide 0.1% Crm 15 GM Tube TOP SCH (21:00)
[2024-03-06] MEDS ORDERED: Non-Formulary Medication 1 Each (Magnesium Oxide [Magnesium] 400 MG Capsule) PO SCH (21:00)
[2024-03-07] MEDS: oxyCODONE 5 MG Tab PO PRN (03:14)
[2024-03-07 05:33] LABS: HEMATOCRIT 26.1 % (34.3-46.0); HEMOGLOBIN 8.5 g/dL (11.2-15.5); MEAN CORPUSCULAR HEMOGLOBIN 30.6 pg (31.6-35.5); MEAN CORPUSCULAR HGB CONC 32.6 g/dL (31.6-35.5); MEAN CORPUSCULAR VOLUME 93.9 fL (81.4-99.0); RED BLOOD CELL COUNT 2.78 M/uL (3.77-5.24); WHITE BLOOD CELL COUNT,WBC 9.4 K/uL (3.2-11.0)
[2024-03-07] MEDS: Pantoprazole 40 MG Tab.CR PO SCH (07:39)
[2024-03-07] MEDS: Ondansetron 4 MG/2 ML SDV IVPUSH PRN (08:51)
[2024-03-07] MEDS ORDERED: Non-Formulary Medication 1 Each (Omeprazole Magnesium [Prilosec Otc] 20 MG Tablet.Dr) PO SCH (09:00)
[2024-03-07] MEDS: Aspirin 81 MG Tab.EC PO SCH (09:44)
[2024-03-07] MEDS: Multivitamins with Iron/Calcium/Folic Acid/Minerals Tab PO SCH (13:09)
[2024-03-07] MEDS: Rivaroxaban 10 MG Tab PO SCH (17:13)
[2024-03-10 05:34] VITALS: BP 125/63; PULSE 80
[2024-03-10] MEDS: Docusate Sodium 100 MG Cap PO PRN (10:53)
== END 2024-03-10 11:40 | DRG 483 ==
LOC: JP.SDS 08:45 → JP.MS 11:50 → JP.SDS 03-07 08:14 → JP.MS 03-07 08:14
PROVIDERS: ADMIT Specialist; ATTEND Specialist
PROC: 0RRK0JZ Replacement of Left Shoulder Joint with Synthetic Substitute, Open Approach (ICD-10-PCS; principal; 2024-03-07)
DX: M19.012 Primary osteoarthritis, left shoulder (principal); I69.351 Hemiplegia and hemiparesis following cerebral infarction affecting right dominant side; M75.112 Incomplete rotator cuff tear or rupture of left shoulder, not specified as traumatic; I10 Essential (primary) hypertension; K21.9 Gastro-esophageal reflux disease without esophagitis; E78.00 Pure hypercholesterolemia, unspecified; M81.0 Age-related osteoporosis without current pathological fracture; Z96.651 Presence of right artificial knee joint; Z86.718 Personal history of other venous thrombosis and embolism; Z98.890 Other specified postprocedural states; Z79.899 Other long term (current) drug therapy; Z79.82 Long term (current) use of aspirin; Z88.8 Allergy status to other drugs, medicaments and biological substances; Z91.018 Allergy to other foods
CPT/HCPCS: 36415; 73020-26-LT; 73020-LT; 80048; 85027; 97110-GO; 97110-GP; 97162-GP; 97165-GO; A9270-GY; J0665; J0690; J1100; J2250; J2405; J2704; J3010; J3490; J7030; J7120